=== PATIENT | male | born 1955 | race Caucasian/White ===

== ENCOUNTER 2016-10-05 16:07 | Inpatient (IN) | payer OTHER ==
[2016-10-05] MEDS ORDERED: Sodium Chloride 0.9% 1,000 ML IV ONE (16:23)
[2016-10-05] MEDS ORDERED: Sodium Chloride 0.9% 10 ML Syringe FLUSH PRN (16:31)
[2016-10-05] MEDS ORDERED: HYDROmorphone 1 MG/ML Syringe IVPUSH ONE (16:37)
--- NOTE | 2016-10-05 17:07 | EDM.PDOC ---
ED HPI GENERAL MEDICAL PROBLEM - General Chief Complaint: Gastrointestinal Problem Stated Complaint: BLOOD LOSS AFTER COLONOSCOPY Time Seen by Provider: 10/05/16 16:14 Source of Information: Reports: Patient History Limitations: Reports: No Limitations - History of Present Illness INITIAL COMMENTS - FREE TEXT/NARRATIVE: The patient presents with blood stool. He had a colonoscopy yesterday by Dr Grullon and she removed about 20 polyps. He was doing okay till this morning and he had 6 bloody stools. There was no feces just blood. He has some generalized abdominal pain. He was lightheaded and nauseated. He was also diaphoretic when he arrived. He denies chest pain or shortness of breath. He has no fever or chills. He has no bleeding problems and he is not on any blood thinners. Onset: Gradual Duration: Day(s): Location: Reports: Abdomen Quality: Reports: Other (crampy) Severity: Moderate Improves with: Reports: None Worsens with: Reports: None Context: Reports: Other (He had a colonoscopy yesterday) Associated Symptoms: Reports: Nausea/Vomiting. Denies: Chest Pain, Fever/Chills , Shortness of Breath Lower Abdominal Pain Score (Numeric/FACES): 7 - Related Data Allergies Allergy/AdvReac Type Severity Reaction Status Date / Time Penicillins Allergy Rash Verified 10/05/16 16:13 Home Meds: Home Meds Allopurinol [Zyloprim] 300 mg PO DAILY 11/15/15 [History] Lisinopril/Hydrochlorothiazide [Lisinopril-Hctz 20-12.5 mg Tab] 12.5 mg PO DAILY 11/15/15 [History] Tadalafil [Cialis] 5 mg PO ASDIRECTED PRN 11/15/15 [History] Hydrocodone/Acetaminophen [[place] 10-325 Tablet] 1 each PO Q6H PRN #15 tablet 06/03 [Rx] Aspirin [Ecotrin] 81 mg PO DAILY 10/05/16 [History] Atenolol 50 mg PO DAILY 10/05/16 [History] Dexlansoprazole [Dexilant] 60 mg PO DAILY 10/05/16 [History] Dextroamphetamine/Amphetamine [Adderall 20 mg Tablet] 20 mg PO TID 10/05/16 [ History] Mometasone Furoate [Nasonex [place]] 2 spray BRITTANEY DAILY 10/05/16 [History] Pravastatin [Pravachol] 20 mg PO BEDTIME 10/05/16 [History] Past Medical History HEENT History: Reports: Allergic Rhinitis, Cataract Cardiovascular History: Reports: Hypertension Gastrointestinal History: Reports: Bowel Obstruction, GERD Other Gastrointestinal History: hernia Genitourinary History: Reports: None Musculoskeletal History: Reports: Back Pain, Chronic, Gout, Neck Pain, Chronic Endocrine/Metabolic History: Reports: Other (See Below) Other Endocrine/Metabolic History: testost. injections q2 weeks - Infectious Disease History Infectious Disease History: Reports: Chicken Pox, Measles, Mumps - Past Surgical History HEENT Surgical History: Reports: Cataract Surgery, Laser Surgery GI Surgical History: Reports: Cholecystectomy, Colonoscopy, Hernia Repair/Other , Polypectomy Musculoskeletal Surgical History: Reports: Shoulder Surgery, Other (See Below) Social & Family History - Family History Cardiac: Reports: Blood Clots/VTE/DVT, Hypertension : Reports: None Endocrine/Metabolic: Reports: Diabetes, type II - Tobacco Use Smoking Status *Q: Never Smoker - Alcohol Use Days Per Week of Alcohol Use: 5 Number of Drinks Per Day: 1 Total Drinks Per Week: 5 - Recreational Drug Use Recreational Drug Use: No - Living Situation & Occupation Living situation: Reports: Occupation: Employed ED ROS GENERAL - Review of Systems Review Of Systems: See Below Constitutional: Reports: Weakness. Denies: Fever, Chills HEENT: Reports: No Symptoms Respiratory: Reports: No Symptoms Cardiovascular: Reports: No Symptoms Endocrine: Reports: No Symptoms GI/Abdominal: Reports: Abdominal Pain, Bloody Stool, Nausea. Denies: Vomiting : Reports: No Symptoms Musculoskeletal: Reports: No Symptoms Skin: Reports: No Symptoms Neurological: Reports: No Symptoms ED EXAM, GI/ABD - Physical Exam Exam: See Below Exam Limited By: No Limitations General Appearance: Alert, No Apparent Distress Ears: Normal External Exam Nose: Normal Inspection Head: Atraumatic, Normocephalic Neck: Normal Inspection Respiratory/Chest: No Respiratory Distress, Lungs Clear, Normal Breath Sounds Cardiovascular: Regular Rate, Rhythm, No Edema, No Murmur GI/Abdominal: Soft, No Organomegaly, No Mass, Tenderness (generalized) Back Exam: Normal Inspection Extremities: Normal Inspection Course - Vital Signs Last Recorded V/S: Last Vital Signs Temp 97.8 F 10/05/16 16:09 Pulse 102 H 10/05/16 17:10 Resp 13 10/05/16 17:10 BP 95/67 10/05/16 17:10 Pulse Ox 96 10/05/16 17:10 - Orders/Labs/Meds Orders: Active Orders 24 hr Category Date Time Status Cardiac Monitoring [RC] . DIRECTED Care 10/05/16 16:31 Active Peripheral IV Care [RC] . DIRECTED Care 10/05/16 16:32 Active Abdomen 1V Decubitis [CR] Stat Exams 10/05/16 16:32 Taken TYPE AND SCREEN [BBK] Stat Lab 10/05/16 16:15 Received Lactated Ringers @ 150 MLS/HR(1000ml Bag) Med 10/05/16 17:30 Ordered Lactated Ringers [Ringers, Lactated] 1,000 ml IV ASDIRECTED Sodium Chloride 0.9% [Saline Flush] Med 10/05/16 16:31 Active 10 ml FLUSH ASDIRECTED PRN Peripheral IV Insertion Adult [OM.PC] Stat Oth 10/05/16 16:31 Ordered Medication Orders Lactated Ringer's (Ringers, Lactated) 1,000 mls @ 150 mls/hr IV ASDIRECTED [place] Sodium Chloride (Saline Flush) 10 ml FLUSH ASDIRECTED PRN PRN Reason: Keep Vein Open Last Admin: 10/05/16 16:44 Dose: 10 ml Labs: Laboratory Tests 10/05/16 10/05/16 10/05/16 Range/Units 16:15 16:15 16:15 WBC 11.00 H (4.23-9.07) K/mm3 RBC 4.37 L (4.63-6.08) M/mm3 Hgb 14.6 (13.7-17.5) gm/L Hct 42.0 (40.1-51.0) % MCV 96.1 H (79.0-92.2) fl MCH 33.4 H (25.7-32.2) pg MCHC 34.8 (32.2-35.5) g/dl RDW Std Deviation 42.7 (35.1-43.9) fL Plt Count 288 (163-337) K/mm3 MPV 9.0 L (9.4-12.3) fl Neut % (Auto) 66.4 (34.0-67.9) % Lymph % (Auto) 22.6 (21.8-53.1) % [place] % (Auto) 9.0 (5.3-12.2) % Eos % (Auto) 1.0 (0.8-7.0) Baso % (Auto) 0.5 (0.1-1.2) % Neut # (Auto) 7.29 H (1.78-5.38) K/mm3 Lymph # (Auto) 2.49 (1.32-3.57) K/mm3 [place] # (Auto) 0.99 H (0.30-0.82) K/mm3 Eos # (Auto) 0.11 (0.04-0.54) K/mm3 Baso # (Auto) 0.06 (0.01-0.08) K/mm3 Sodium 138 (136-145) mEq/L Potassium 4.5 (3.5-5.1) mEq/L Chloride 102 (98-107) mEq/L Carbon Dioxide 28 (21-32) mEq/L Anion Gap 12.5 (5-15) BUN 15 (7-18) mg/dL Creatinine 1.5 H (0.7-1.3) mg/dL Est Cr Clr Drug Dosing 54.75 mL/min Estimated GFR (MDRD) 48 (>60) mL/min BUN/Creatinine Ratio 10.0 L (14-18) Glucose 113 H (74-106) mg/dL Calcium 8.6 (8.5-10.1) mg/dL Total Bilirubin 0.4 (0.2-1.0) mg/dL AST 22 (15-37) U/L ALT 45 (16-63) U/L Alkaline Phosphatase 86 (46-116) U/L Total Protein 6.5 (6.4-8.2) g/dl Albumin 3.5 (3.4-5.0) g/dl Globulin 3.0 gm/dL Albumin/Globulin Ratio 1.2 (1-2) Lipase 80 (73-393) U/L Meds: Medications Generic Name Dose Route Start Last Admin Trade Name Freq PRN Reason Stop Dose Admin Lactated Ringer's 1,000 mls @ 150 mls/hr 10/05/16 17:30 Ringers, Lactated IV ASDIRECTED [place]O Sodium Chloride 10 ml 10/05/16 16:31 10/05/16 16:44 Saline Flush FLUSH 10 ml ASDIRECTED PRN Administration Keep Vein Open Discontinued Medications Generic Name Dose Route Start Last Admin Trade Name Nic PRN Reason Stop Dose Admin Hydromorphone HCl 1 mg 10/05/16 16:37 10/05/16 16:43 Dilaudid IVPUSH 10/05/16 16:38 1 mg ONETIME ONE Administration Sodium Chloride 1,000 mls @ 999 mls/hr 10/05/16 16:23 10/05/16 16:24 Normal Saline IV 10/05/16 17:23 999 mls/hr ONETIME ONE Administration - Re-Assessments/Exams Free Text/Narrative Re-Assessment/Exam: 10/05/16 17:11 I ordered an IV NS 1L bolus, labs, x-ray and type and screen. I contacted Dr Grullon when he came in and she was okay with the plan. I will call her with an update. 10/05/16 17:31 His x-ray was done right lateral position and it shows no free air or obstruction. His WBC is elevated at 11. His Hgb is normal at 14.6. His creatinine is elevated at 1.5. His lipase is normal. He had another bowel movement and there was 20mls of dark red blood. He had more pain. I called Dr Grullon to up date her on she will admit him see him shortly. Departure - Departure Time of Disposition: 17:35 Disposition: Admitted As Inpatient 68 Condition: fair Clinical Impression: Renal insufficiency GI bleed Qualifiers: GI bleed type/associated pathology: unspecified gastrointestinal hemorrhage type Qualified Code(s): K92.2 - Gastrointestinal hemorrhage, unspecified - Discharge Information Forms: ED Department Discharge - My Orders Last 24 Hours: My Active Orders 10/05/16 16:15 TYPE AND SCREEN [BBK] Stat 10/05/16 16:31 Cardiac Monitoring [RC] . DIRECTED Sodium Chloride 0.9% [Saline Flush] 10 ml FLUSH ASDIRECTED PRN Peripheral IV Insertion Adult [OM.PC] Stat 10/05/16 16:32 Peripheral IV Care [RC] . DIRECTED Abdomen 1V Decubitis [CR] Stat 10/05/16 17:30 Lactated Ringers @ 150 MLS/HR(1000ml Bag) Lactated Ringers [Ringers, Lactated] 1 ,000 ml IV ASDIRECTED - Assessment/Plan Last 24 Hours: My Active Orders 10/05/16 16:15 TYPE AND SCREEN [BBK] Stat 10/05/16 16:31 Cardiac Monitoring [RC] . DIRECTED Sodium Chloride 0.9% [Saline Flush] 10 ml FLUSH ASDIRECTED PRN Peripheral IV Insertion Adult [OM.PC] Stat 10/05/16 16:32 Peripheral IV Care [RC] . DIRECTED Abdomen 1V Decubitis [CR] Stat 10/05/16 17:30 Lactated Ringers @ 150 MLS/HR(1000ml Bag) Lactated Ringers [Ringers, Lactated] 1 ,000 ml IV ASDIRECTED
[2016-10-05] MEDS ORDERED: Lactated Ringers 1,000 ML IV SCH (17:30)
[2016-10-05] MEDS ORDERED: HYDROmorphone 0.5 MG/0.5 ML Syringe IVPUSH ONE (17:37)
[2016-10-05] MEDS ORDERED: Acetaminophen 325 MG Tab PO PRN (19:19)
[2016-10-05] MEDS ORDERED: diphenhydrAMINE 50 MG/ML SDV IV PRN (19:19)
--- NOTE | 2016-10-05 19:29 | PCM.HP ---
H&P History of Present Illness - General Date of Service: 10/05/16 Admit Problem/Dx: Admission Diagnosis/Problem Admission Diagnosis/Problem Hemorrhage of colon Source of Information: Patient, Family, Provider History Limitations: Reports: No Limitations - History of Present Illness Initial Comments - Free Text/Narative: 61 yo M with hx of colonoscopy yesterday performed by me with removal of 20 polyps. He began having some bloody diarrhea, more maroon in color today. He also has some abd discomfort. The stools became larger throughout the day today and he felt weaker. He presented to the ED where he had several small volume bloody stools, slight tachycardia (low 100s), and some hypotension to the mid 80s systolic, which responded to IVF. Lat decub xray obtained in the ED did not show any pneumoperitoneum. He was admitted and about 15 minutes after transfer to the Med/Surg floor he had a large volume bloody stool with presyncope. He did report difficulty breathing at that time and the nurse called a rapid response. His oxygen saturations have been normal and were normal when he reported difficulty breathing. He was given a 1L bolus and I asked that he be transferred to the ICU when his nurse contacted me by telephone. The patient also had a stat EKG which showed no acute changes and cardiac enzymes. I reviewed the patient's laboratory studies. His last Hb at [facility] was nearly 18, he does have a hx of polycythemia. His baseline Cr is also 1 on recent CMP (previous labs on 10/01), it was elevated in the ED today to 1.5. I did obtain a stat CXR which showed no pulmonary vascular congestion or other significant acute abnormalities. He does not feel short of breath at this time, but says if he takes a deep breath he feels light-headed. He has some abdominal pain, but complains primarily of shoulder pain. He reports that he does not feel anxious. He also had a very recent rotator cuff tear. He has sleep apnea but has not yet completed testing or started with a CPAP. This has been ordered however. He did take all of his medications today except his beta-javon which he takes at night. His was at the bedside during the interview and contributed to the history. Does take baby ASA daily. Lower Abdominal Pain Score (Numeric/FACES): 7 - Related Data Allergies/Adverse Reactions: Allergies Allergy/AdvReac Type Severity Reaction Status Date / Time Penicillins Allergy Rash Verified 10/05/16 16:13 Home Medications: Home Meds Allopurinol [Zyloprim] 300 mg PO DAILY 11/15/15 [History] Lisinopril/Hydrochlorothiazide [Lisinopril-Hctz 20-12.5 mg Tab] 12.5 mg PO DAILY 11/15/15 [History] Tadalafil [Cialis] 5 mg PO ASDIRECTED PRN 11/15/15 [History] Hydrocodone/Acetaminophen [[place] 10-325 Tablet] 1 each PO Q6H PRN #15 tablet 06/03 [Rx] Aspirin [Ecotrin] 81 mg PO DAILY 10/05/16 [History] Atenolol 50 mg PO DAILY 10/05/16 [History] Dexlansoprazole [Dexilant] 60 mg PO DAILY 10/05/16 [History] Dextroamphetamine/Amphetamine [Adderall 20 mg Tablet] 20 mg PO TID 10/05/16 [ History] Mometasone Furoate [Nasonex Ava] 2 spray BRITTANEY DAILY 10/05/16 [History] Pravastatin [Pravachol] 20 mg PO BEDTIME 10/05/16 [History] Past Medical History HEENT History: Reports: Allergic Rhinitis, Cataract Cardiovascular History: Reports: CAD, High Cholesterol, Hypertension Respiratory History: Reports: Sleep Apnea Gastrointestinal History: Reports: Bowel Obstruction, Colon Polyp, GERD, GI Bleed, Hiatal Hernia, Other (See Below) (Fatty liver disease) Other Gastrointestinal History: Gastritis/Esophagitis Genitourinary History: Reports: BPH Musculoskeletal History: Reports: Back Pain, Chronic, Gout, Neck Pain, Chronic Other Musculoskeletal History: Recent rotator cuff tear (this May) Psychiatric History: Reports: ADD, Anxiety Endocrine/Metabolic History: Reports: Other (See Below) Other Endocrine/Metabolic History: testost. injections q2 weeks Hematologic History: Reports: Polycythemia (Baseline Hb 18) - Infectious Disease History Infectious Disease History: Reports: Chicken Pox, Measles, Mumps - Past Surgical History HEENT Surgical History: Reports: Cataract Surgery, Laser Surgery GI Surgical History: Reports: Cholecystectomy, Colonoscopy, EGD, Hernia, Abdominal, Hernia Repair/Other, Polypectomy Musculoskeletal Surgical History: Reports: Shoulder Surgery, Other (See Below) Social & Family History - Family History Cardiac: Reports: Blood Clots/VTE/DVT, Hypertension : Reports: None Endocrine/Metabolic: Reports: Diabetes, type II - Tobacco Use Smoking Status *Q: Former Smoker Tobacco Use Within Last Twelve Months: No - Alcohol Use Days Per Week of Alcohol Use: 5 Number of Drinks Per Day: 1 Total Drinks Per Week: 5 - Recreational Drug Use Recreational Drug Use: No - Living Situation & Occupation Living situation: Reports: Occupation: Employed Social History Comment: and has 1 adult child. 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 Diet coke 7-8 cans a day. H&P Review of Systems - Review of Systems: Review Of Systems: See Below General: Reports: Weakness, Fatigue HEENT: Reports: No Symptoms Pulmonary: Reports: Wheezing. Denies: Shortness of Breath, Cough Cardiovascular: Reports: Dyspnea on Exertion, Lightheadedness. Denies: Chest Pain, Edema Gastrointestinal: Reports: Abdominal Pain, Bloody Stool, Diarrhea, Hematochezia. Denies: Distension, Nausea, Vomiting Genitourinary: Reports: No Symptoms Musculoskeletal: Reports: Neck Pain, Shoulder Pain, Back Pain Skin: Reports: No Symptoms Psychiatric: Reports: No Symptoms Neurological: Reports: No Symptoms Hematologic/Lymphatic: Reports: No Symptoms Immunologic: Reports: No Symptoms Exam - Exam Exam: See Below - Vital Signs Vital Signs: Last Vital Signs Temp 97.3 F 10/05/16 18:53 Pulse 110 H 10/05/16 18:43 Resp 11 L 10/05/16 18:53 BP 107/79 10/05/16 18:53 Pulse Ox 97 10/05/16 18:53 Weight: 220 lb - Exam Quality Assessment: Supplemental Oxygen General: Alert, Oriented, Cooperative HEENT: Conjunctiva Clear. No: Scleral Icterus Neck: Supple, Trachea Midline Lungs: Clear to Auscultation, Normal Respiratory Effort, Wheezing (? some upper respiratory ) Abdomen: Soft, Tenderness (right and left lateral abdomen, some around umbilicus ). No: Peritoneal Signs Rectal (Males) Exam: Deferred, Bloody Stool Skin: Warm, Dry, Intact Neurological: Cranial Nerves Intact, Normal Speech. No: Focal Deficit Neuro Extensive - Mental Status: Alert Psychiatric: Alert - Patient Data Lab Results last 24 hrs: Laboratory Results - last 24 hr 10/05/16 10/05/16 Range/Units 18:40 18:40 WBC 10.83 H (4.23-9.07) K/mm3 RBC 3.75 L (4.63-6.08) M/mm3 Hgb 12.6 L (13.7-17.5) gm/L Hct 35.8 L (40.1-51.0) % MCV 95.5 H (79.0-92.2) fl MCH 33.6 H (25.7-32.2) pg MCHC 35.2 (32.2-35.5) g/dl RDW Std Deviation 42.3 (35.1-43.9) fL Plt Count 256 (163-337) K/mm3 MPV 8.8 L (9.4-12.3) fl Neut % (Auto) 65.2 (34.0-67.9) % Lymph % (Auto) 23.7 (21.8-53.1) % [place] % (Auto) 8.8 (5.3-12.2) % Eos % (Auto) 1.2 (0.8-7.0) Baso % (Auto) 0.5 (0.1-1.2) % Neut # (Auto) 7.06 H (1.78-5.38) K/mm3 Lymph # (Auto) 2.57 (1.32-3.57) K/mm3 [place] # (Auto) 0.95 H (0.30-0.82) K/mm3 Eos # (Auto) 0.13 (0.04-0.54) K/mm3 Baso # (Auto) 0.05 (0.01-0.08) K/mm3 CK-MB (CK-2) 0.9 (0-3.6) ng/ml Troponin I < 0.017 (0.00-0.056) ng/mL Result Diagrams: 10/05/16 18:40 10/05/16 16:15 Imaging Impressions last 24 hrs: I personally reviewed his CXR and abdominal XR, see H&P. *Q Meaningful Use (ADM) - VTE *Q VTE Criteria *Q: - Stroke *Q Stroke Criteria *Q: - AMI *Q AMI Criteria *Q: - Problem List (1) Colonoscopy causing post-procedural bleeding SNOMED Code(s): 021413706 ICD Code: K91.840 - POSTPROC HEMOR OF A DGSTV SYS ORG FOL A DGSTV SYS PROCEDURE Status: Acute Priority: High Current Visit: Yes (2) Acute post-hemorrhagic anemia SNOMED Code(s): 901697759 ICD Code: D62 - ACUTE POSTHEMORRHAGIC ANEMIA Status: Acute Current Visit : Yes (3) Hypotension SNOMED Code(s): 34503771 ICD Code: I95.9 - HYPOTENSION, UNSPECIFIED Status: Acute Current Visit: Yes (4) Tachycardia SNOMED Code(s): 0127101 ICD Code: R00.0 - TACHYCARDIA, UNSPECIFIED Status: Acute Current Visit: Yes (5) Sleep apnea in adult SNOMED Code(s): 60648320 ICD Code: G47.30 - SLEEP APNEA, UNSPECIFIED Status: Acute Current Visit: Yes (6) CAD (coronary artery disease) SNOMED Code(s): 38793112 ICD Code: I25.10 - ATHSCL HEART DISEASE OF [place] CORONARY ARTERY W/O ANG PCTRS Status: Acute Current Visit: Yes (7) Polycythemia SNOMED Code(s): 777172350 ICD Code: D75.1 - SECONDARY POLYCYTHEMIA Status: Acute Current Visit: Yes (8) GERD (gastroesophageal reflux disease) SNOMED Code(s): 276445399 ICD Code: K21.9 - GASTRO-ESOPHAGEAL REFLUX DISEASE WITHOUT ESOPHAGITIS Status: Acute Current Visit: No (9) Hiatal hernia SNOMED Code(s): 89323163 ICD Code: K44.9 - DIAPHRAGMATIC HERNIA WITHOUT OBSTRUCTION OR GANGRENE Status: Acute Current Visit: No (10) Hypertension SNOMED Code(s): 95117610 ICD Code: I10 - ESSENTIAL (PRIMARY) HYPERTENSION Status: Acute Current Visit: No (11) History of colon polyps SNOMED Code(s): 656023504 ICD Code: Z86.010 - PERSONAL HISTORY OF COLONIC POLYPS Status: Acute Current Visit: Yes (12) BPH (benign prostatic hyperplasia) SNOMED Code(s): 408749625, 211220392 ICD Code: N40.0 - BENIGN PROSTATIC HYPERPLASIA WITHOUT LOWER URINRY TRACT SYMP Status: Acute Current Visit: Yes (13) ADD (attention deficit disorder) SNOMED Code(s): 396384433 ICD Code: F98.8 - OTH BEHAV/EMOTN DISORD W ONSET USLY OCCUR IN CHLDHD AND ADOL Status: Acute Current Visit: Yes (14) Anxiety SNOMED Code(s): 29386768 ICD Code: F41.9 - ANXIETY DISORDER, UNSPECIFIED Status: Acute Current Visit: Yes (15) Low testosterone in male SNOMED Code(s): 3138954516740 ICD Code: E29.1 - TESTICULAR HYPOFUNCTION Status: Acute Current Visit: Yes (16) GI bleed SNOMED Code(s): 44464392 ICD Code: K92.2 - GASTROINTESTINAL HEMORRHAGE, UNSPECIFIED Status: Acute Current Visit: Yes Qualifiers: GI bleed type/associated pathology: unspecified gastrointestinal hemorrhage type Qualified Code(s): K92.2 - Gastrointestinal hemorrhage, unspecified (17) Renal insufficiency SNOMED Code(s): 359849742, 165388815 ICD Code: N28.9 - DISORDER OF KIDNEY AND URETER, UNSPECIFIED Status: Acute Current Visit: Yes Problem List Initiated/Reviewed/Updated: Yes Orders Last 24hrs: Active Orders 24 hr Category Date Time Status Patient Status [ADT] Routine ADT 10/05/16 18:36 Active EKG 12 Lead [EKG Documentation Completion] [RC] STAT Care 10/05/16 18:36 Active CXR [Chest 1V Frontal] [CR] Stat Exams 10/05/16 19:10 Ordered CBC W/O DIFF,HEMOGRAM [HEME] Q6H Lab 10/05/16 23:59 Ordered CBC W/O DIFF,HEMOGRAM [HEME] Q6H Lab 10/06/16 05:59 Ordered CBC W/O DIFF,HEMOGRAM [HEME] Q6H Lab 10/06/16 11:59 Ordered CBC W/O DIFF,HEMOGRAM [HEME] Q6H Lab 10/06/16 17:59 Ordered INR,PT,PROTHROMBIN TIME [COAG] Stat Lab 10/05/16 18:40 Received Acetaminophen [Tylenol] Med 10/05/16 19:19 Once 650 mg PO NOW ONE diphenhydrAMINE [Benadryl] Med 10/05/16 19:19 Once 25 mg IV ONETIME ONE Blood Transfusion Reflex Orders [OM.PC] Routine Oth 10/05/16 19:19 Ordered Transfuse PRBC [Transfuse Red Blood Cells] [COMM] Stat Oth 10/05/16 19:19 Ordered Transfuse Red Blood Cells [COMM] Urgent Oth 10/05/16 19:19 Ordered Medication Orders Acetaminophen (Tylenol) 650 mg PO ASDIRECTED PRN PRN Reason: * GIVE 30 MIN PRIOR TO PRBC * Stop: 10/05/16 23:59 Diphenhydramine HCl (Benadryl) 25 mg IV ASDIRECTED PRN PRN Reason: * GIVE 30 MIN PRIOR TO PRBC * Stop: 10/05/16 23:59 Lactated Ringer's (Ringers, Lactated) 1,000 mls @ 150 mls/hr IV ASDIRECTED AUGUSTO Last Admin: 10/05/16 17:30 Dose: 150 mls/hr Sodium Chloride (Saline Flush) 10 ml FLUSH ASDIRECTED PRN PRN Reason: Keep Vein Open Last Admin: 10/05/16 16:44 Dose: 10 ml Assessment/Plan Comment:: 61 yo M with GI bleeding likely 2/2 multiple polypectomies on colonoscopy yesterday Patient with polycythemia and decr Hb 18->12.6 with ongoing losses and significantly symptomatic. 2 units O negative given while crossmatch completed. Will proceed with emergent colonoscopy to control hemorrhage. Risks and benefits of colonoscopy and blood transfusion discussed with the patient and his . Consent obtained from patient. Will plan for ongoing transfusion at this time and 1 unit FFP until hemorrhage controlled. No evidence of pneumoperitoneum or vascular overload. 75 minutes spent at the bedside in direct care of the patient.
--- NOTE | 2016-10-05 20:18 | PCM.PREANE ---
Preanesthetic Assessment - Anesthesia/Transfusion/Family Hx Anesthesia History: Prior Anesthesia Without Reaction Family History of Anesthesia Reaction: No Transfusion History: Prior Transfusion Without Reaction (CURRENTLY RECEIVING 2 UNITS.) Intubation History: Unknown - Review of Systems General: Weakness, Fatigue Pulmonary: No Symptoms Cardiovascular: No Symptoms (HTN) Gastrointestinal: Abdominal pain Neurological: No Symptoms (left rotator cuff/shoulder pain noted.), Weakness Other: Reports: None - Physical Assessment NPO Status Date: 10/05/16 NPO Status Time: 01:00 Pulse: 110 O2 Sat by Pulse Oximetry: 97 Respiratory Rate: 11 Blood Pressure: 101/76 Temperature: 36.3 C Vital Signs: Last Vital Signs Temp 36.3 C 10/05/16 18:53 Pulse 110 H 10/05/16 18:43 Resp 11 L 10/05/16 18:53 BP 107/79 10/05/16 18:53 Pulse Ox 97 10/05/16 18:53 Height: 1.78 m Weight: 99.79 kg ASA Class: 3E Mental Status: Alert & Oriented x3 Airway Class: Mallampati = 2 Dentition: Reports: Normal Dentition, Caries Thyro-Mental Finger Breadths: 3 Mouth Opening Finger Breadths: 3 ROM/Head Extension: Full Lungs: Clear to auscultation, Normal respiratory effort, Decreased breath sounds Cardiovascular: Regular Rate, Regular Rhythm - Lab Values: Laboratory Last Values WBC 10.83 K/mm3 (4.23-9.07) H 10/05/16 18:40 RBC 3.75 M/mm3 (4.63-6.08) L 10/05/16 18:40 Hgb 12.6 gm/L (13.7-17.5) L 10/05/16 18:40 Hct 35.8 % (40.1-51.0) L 10/05/16 18:40 MCV 95.5 fl (79.0-92.2) H 10/05/16 18:40 MCH 33.6 pg (25.7-32.2) H 10/05/16 18:40 MCHC 35.2 g/dl (32.2-35.5) 10/05/16 18:40 RDW Std Deviation 42.3 fL (35.1-43.9) 10/05/16 18:40 Plt Count 256 K/mm3 (163-337) 10/05/16 18:40 MPV 8.8 fl (9.4-12.3) L 10/05/16 18:40 Neut % (Auto) 65.2 % (34.0-67.9) 10/05/16 18:40 Lymph % (Auto) 23.7 % (21.8-53.1) 10/05/16 18:40 [place] % (Auto) 8.8 % (5.3-12.2) 10/05/16 18:40 Eos % (Auto) 1.2 (0.8-7.0) 10/05/16 18:40 Baso % (Auto) 0.5 % (0.1-1.2) 10/05/16 18:40 Neut # (Auto) 7.06 K/mm3 (1.78-5.38) H 10/05/16 18:40 Lymph # (Auto) 2.57 K/mm3 (1.32-3.57) 10/05/16 18:40 [place] # (Auto) 0.95 K/mm3 (0.30-0.82) H 10/05/16 18:40 Eos # (Auto) 0.13 K/mm3 (0.04-0.54) 10/05/16 18:40 Baso # (Auto) 0.05 K/mm3 (0.01-0.08) 10/05/16 18:40 PT 10.9 SECONDS (8.0-13.0) 10/05/16 18:40 INR 1.00 10/05/16 18:40 Sodium 138 mEq/L (136-145) 10/05/16 16:15 Potassium 4.5 mEq/L (3.5-5.1) 10/05/16 16:15 Chloride 102 mEq/L (98-107) 10/05/16 16:15 Carbon Dioxide 28 mEq/L (21-32) 10/05/16 16:15 Anion Gap 12.5 (5-15) 10/05/16 16:15 BUN 15 mg/dL (7-18) 10/05/16 16:15 Creatinine 1.5 mg/dL (0.7-1.3) H 10/05/16 16:15 Est Cr Clr Drug Dosing 54.75 mL/min 10/05/16 16:15 Estimated GFR (MDRD) 48 mL/min (>60) 10/05/16 16:15 BUN/Creatinine Ratio 10.0 (14-18) L 10/05/16 16:15 Glucose 113 mg/dL (74-106) H 10/05/16 16:15 Calcium 8.6 mg/dL (8.5-10.1) 10/05/16 16:15 Total Bilirubin 0.4 mg/dL (0.2-1.0) 10/05/16 16:15 AST 22 U/L (15-37) 10/05/16 16:15 ALT 45 U/L (16-63) 10/05/16 16:15 Alkaline Phosphatase 86 U/L (46-116) 10/05/16 16:15 CK-MB (CK-2) 0.9 ng/ml (0-3.6) 10/05/16 18:40 Troponin I < 0.017 ng/mL (0.00-0.056) 10/05/16 18:40 Total Protein 6.5 g/dl (6.4-8.2) 10/05/16 16:15 Albumin 3.5 g/dl (3.4-5.0) 10/05/16 16:15 Globulin 3.0 gm/dL 10/05/16 16:15 Albumin/Globulin Ratio 1.2 (1-2) 10/05/16 16:15 Lipase 80 U/L (73-393) 10/05/16 16:15 Blood Type O POSITIVE 10/05/16 16:15 Gel Antibody Screen Negative 10/05/16 16:15 Crossmatch See Detail 10/05/16 16:15 Above labs reviewed and noted. - Imaging/EKG Impressions: ek07/05/2016: SINUS TACYCARDIA Echocardiogram: EF= 65-70% - Allergies Allergies/Adverse Reactions: Allergies Allergy/AdvReac Type Severity Reaction Status Date / Time Penicillins Allergy Rash Verified 10/05/16 16:13 - Blood Blood Available: Yes Product(s) Available: PRBC, FFP - Anesthesia Plan Pre-Op Medication Ordered: Beta Dolly Beta Dolly: Atenolol Med Last Dose Date: 10/05/16 Med Last Dose Time: 01:30 - Acknowledgements Anesthesia Type Planned: MAC Pt an Appropriate Candidate for the Planned Anesthesia: Yes Alternatives and Risks of Anesthesia Discussed w Pt/Guardian: Yes Pt/Guardian Understands and Agrees with Anesthesia Plan: Yes PreAnesthesia Questionnaire HEENT History: Reports: Allergic Rhinitis, Cataract Cardiovascular History: Reports: CAD, High Cholesterol, Hypertension Respiratory History: Reports: Sleep Apnea Gastrointestinal History: Reports: Bowel Obstruction, Colon Polyp, GERD, GI Bleed, Hiatal Hernia, Other (See Below) (Fatty liver disease) Other Gastrointestinal History: Gastritis/Esophagitis Genitourinary History: Reports: BPH Musculoskeletal History: Reports: Back Pain, Chronic, Gout, Neck Pain, Chronic Other Musculoskeletal History: Recent rotator cuff tear (this May) Psychiatric History: Reports: ADD, Anxiety Endocrine/Metabolic History: Reports: Other (See Below) Other Endocrine/Metabolic History: testost. injections q2 weeks Hematologic History: Reports: Polycythemia (Baseline Hb 18) - Infectious Disease History Infectious Disease History: Reports: Chicken Pox, Measles, Mumps - Past Surgical History HEENT Surgical History: Reports: Cataract Surgery, Laser Surgery GI Surgical History: Reports: Cholecystectomy, Colonoscopy, EGD, Hernia, Abdominal, Hernia Repair/Other, Polypectomy Musculoskeletal Surgical History: Reports: Shoulder Surgery, Other (See Below) - SUBSTANCE USE Smoking Status *Q: Former Smoker Tobacco Use Within Last Twelve Months: No Days Per Week of Alcohol Use: 5 Number of Drinks Per Day: 1 Total Drinks Per Week: 5 Recreational Drug Use History: No - HOME MEDS Home Medications: Home Meds Allopurinol [Zyloprim] 300 mg PO DAILY 11/15/15 [History] Lisinopril/Hydrochlorothiazide [Lisinopril-Hctz 20-12.5 mg Tab] 12.5 mg PO DAILY 11/15/15 [History] Tadalafil [Cialis] 5 mg PO ASDIRECTED PRN 11/15/15 [History] Hydrocodone/Acetaminophen [[place] 10-325 Tablet] 1 each PO Q6H PRN #15 tablet 06/03 [Rx] Aspirin [Ecotrin] 81 mg PO DAILY 10/05/16 [History] Atenolol 50 mg PO DAILY 10/05/16 [History] Dexlansoprazole [Dexilant] 60 mg PO DAILY 10/05/16 [History] Dextroamphetamine/Amphetamine [Adderall 20 mg Tablet] 20 mg PO TID 10/05/16 [ History] Mometasone Furoate [Nasonex [place]] 2 spray BRITTANEY DAILY 10/05/16 [History] Pravastatin [Pravachol] 20 mg PO BEDTIME 10/05/16 [History] - CURRENT (IN HOUSE) MEDS Current Meds: Current Medications Acetaminophen (Tylenol) 650 mg PO ASDIRECTED PRN PRN Reason: * GIVE 30 MIN PRIOR TO PRBC * Stop: 10/05/16 23:59 Thrombin 50,000 unit/ Sterile (Water 1,000 ml) 0 unit RECTAL ONETIME ONE Stop: 10/05/16 19:30 Diphenhydramine HCl (Benadryl) 25 mg IV ASDIRECTED PRN PRN Reason: * GIVE 30 MIN PRIOR TO PRBC * Stop: 10/05/16 23:59 Lactated Ringer's (Ringers, Lactated) 1,000 mls @ 150 mls/hr IV ASDIRECTED AUG[place]O Last Admin: 10/05/16 17:30 Dose: 150 mls/hr Sodium Chloride (Saline Flush) 10 ml FLUSH ASDIRECTED PRN PRN Reason: Keep Vein Open Last Admin: 10/05/16 16:44 Dose: 10 ml Discontinued Medications Hydromorphone HCl (Dilaudid) 1 mg IVPUSH ONETIME ONE Stop: 10/05/16 16:38 Last Admin: 10/05/16 16:43 Dose: 1 mg Hydromorphone HCl (Dilaudid) 0.5 mg IVPUSH ONETIME ONE Stop: 10/05/16 17:38 Last Admin: 10/05/16 17:41 Dose: 0.5 mg Sodium Chloride (Normal Saline) 1,000 mls @ 999 mls/hr IV ONETIME ONE Stop: 10/05/16 17:23 Last Admin: 10/05/16 16:24 Dose: 999 mls/hr
[2016-10-05] MEDS ORDERED: Thrombin (Bovine) 5,000 Unit Kit ONE ×2 (20:38→20:55)
[2016-10-05] MEDS ORDERED: Simvastatin 10 MG Tab PO SCH (21:00)
[2016-10-05] MEDS ORDERED: Non-Formulary Medication 1 Each (Pravastatin 20 MG) PO SCH (21:00)
[2016-10-05] MEDS ORDERED: fentaNYL 100 MCG/2 ML SDV ONE (21:05)
[2016-10-05] MEDS ORDERED: Lidocaine 1% 6 ML ONE (21:05)
[2016-10-05] MEDS ORDERED: Propofol 200 MG/20 ML SDV ONE ×3 (21:05→22:03)
[2016-10-05] MEDS ORDERED: Lidocaine 1% 2 ML ONE ×2 (21:12)
[2016-10-05] MEDS ORDERED: Lactated Ringers 1,000 ML ONE ×2 (21:30)
[2016-10-05] MEDS ORDERED: Sodium Chloride 0.9% 1,000 ML ONE (21:31)
[2016-10-05] MEDS: WATER FOR IRRIGATION STERILE RECTAL ONE ×4 (21:42→23:53)
[2016-10-05] MEDS: THROMBIN RECTAL ONE ×4 (21:42→23:53)
--- NOTE | 2016-10-05 22:03 | PCM.OPNOTE ---
- General Post-Op/Procedure Note Date of Surgery/Procedure: 10/05/16 Operative Procedure(s): Diagnostic colonoscopy with clip placement, instillation of thrombin enema Pre Op Diagnosis: Post-colonoscopy GI bleeding Post-Op Diagnosis: Area of cecal polyp excision with recent, but no active bleeding Anesthesia Technique: MAC Primary Surgeon: Lisa Grullon Anesthesia Provider: Jenna Sauceda Pathology: None Fluid Replacement, Intraop: 2,280 (see next ) EBL in mLs: 400 (old blood suctioned from colon ) Complications: None Condition: Good Free Text/Narrative:: INTRAOPERATIVE FLUIDS: 2 units packed red blood cells - 720 mL, FFP 360 mL, crystalloid 1100 mL; TOTAL - 2280 mL INDICATION FOR PROCEDURE: The patient is a []-year-old [] who was referred to me by [] for evaluation for []. Performing a [] colonoscopy and the associated risks of the procedure had been discussed with the patient. The patient found these risks acceptable and agreed to proceed. DESCRIPTION OF PROCEDURE: The patient was taken to the operating room and placed in left lateral decubitus position. After induction of adequate sedation , a digital rectal exam was performed which was unremarkable. [] A [] Olympus colonoscope was inserted into the rectum and guided under direct visualization to the appendiceal orifice and ileocecal valve. Counter pressure was utilized to facilitate passage of the scope. [] The scope was then slowly withdrawn through the colon. The quality of the prep was []. There was no evidence of angiodysplasias, diverticulum or mass lesions. The scope was withdrawn into the rectum and retroflexed. There was no significant prominence of the patient' s internal hemorrhoids. The scope was straightened, the colon was desufflated, and the scope was withdrawn. The patient was awakened from sedation and transferred to the recovery room in stable condition having tolerated the procedure well. POSTOPERATIVE PLAN: I discussed with the patient's [] my intraoperative findings and recommendations. []
[2016-10-05] MEDS ORDERED: Ondansetron 4 MG/2 ML SDV IVPUSH PRN (22:05)
[2016-10-05] MEDS ORDERED: Sodium Chloride 0.9% 1,000 ML IV SCH (22:15)
[2016-10-05] MEDS ORDERED: Benzocaine/Cetylpyridinium/Menthol Lozenge MUCMEM PRN (22:56)
[2016-10-05] MEDS: HYDROmorphone 0.5 MG/0.5 ML Syringe IVPUSH PRN (23:05)
[2016-10-06] MEDS ORDERED: Magnesium Sulfate/Water 2 GM in Premix Bag 1 BAG IV ONE (00:45)
[2016-10-06] MEDS ORDERED: Magnesium Sulfate/Water 50 ML ONE (00:50)
[2016-10-06] MEDS: HYDROmorphone 0.5 MG/0.5 ML Syringe IVPUSH PRN (05:24)
[2016-10-06] MEDS ORDERED: Pantoprazole 40 MG Tab.CR PO SCH ×2 (07:00→09:00)
[2016-10-06] MEDS ORDERED: Allopurinol 300 MG Tab PO SCH (09:00)
[2016-10-06] MEDS ORDERED: Non-Formulary Medication 1 Each (Dexlansoprazole [Dexilant] 60 MG) PO SCH (09:00)
[2016-10-06] MEDS ORDERED: MOMETASONE FUROATE NAS SCH (09:00)
--- NOTE | 2016-10-06 10:27 | PCM.PN ---
- General Info Date of Service: 10/06/16 Admission Dx/Problem (Free Text): Admission Diagnosis/Problem Admission Diagnosis/Problem Hemorrhage of colon - Review of Systems Systems Review Comment:: No bleeding/loose stools since colonoscopy last night. No complaints this AM other than left shoulder. Tolerating diet this morning. Reports "feels great." - Patient Data Vitals - most recent: Last Vital Signs Temp 98.0 F 10/06/16 07:57 Pulse 110 H 10/05/16 20:39 Resp 14 10/06/16 07:57 BP 114/82 10/06/16 07:57 Pulse Ox 96 10/06/16 07:57 Weight - most recent: 216 lb 7.903 oz I&O - last 24 hours: Intake & Output 10/05/16 10/06/16 10/06/16 22:59 06:59 14:59 Intake Total 2280 2250 Output Total 850 Balance 2280 1400 Lab Results last 24 hrs: Laboratory Results - last 24 hr 10/05/16 10/05/16 10/05/16 Range/Units 18:40 18:40 18:40 WBC 10.83 H (4.23-9.07) K/mm3 RBC 3.75 L (4.63-6.08) M/mm3 Hgb 12.6 L (13.7-17.5) gm/L Hct 35.8 L (40.1-51.0) % MCV 95.5 H (79.0-92.2) fl MCH 33.6 H (25.7-32.2) pg MCHC 35.2 (32.2-35.5) g/dl RDW Std Deviation 42.3 (35.1-43.9) fL Plt Count 256 (163-337) K/mm3 MPV 8.8 L (9.4-12.3) fl Neut % (Auto) 65.2 (34.0-67.9) % Lymph % (Auto) 23.7 (21.8-53.1) % [place] % (Auto) 8.8 (5.3-12.2) % Eos % (Auto) 1.2 (0.8-7.0) Baso % (Auto) 0.5 (0.1-1.2) % Neut # (Auto) 7.06 H (1.78-5.38) K/mm3 Lymph # (Auto) 2.57 (1.32-3.57) K/mm3 [place] # (Auto) 0.95 H (0.30-0.82) K/mm3 Eos # (Auto) 0.13 (0.04-0.54) K/mm3 Baso # (Auto) 0.05 (0.01-0.08) K/mm3 PT 10.9 (8.0-13.0) SECONDS INR 1.00 Sodium (136-145) mEq/L Potassium (3.5-5.1) mEq/L Chloride (98-107) mEq/L Carbon Dioxide (21-32) mEq/L Anion Gap (5-15) BUN (7-18) mg/dL Creatinine (0.7-1.3) mg/dL Est Cr Clr Drug Dosing mL/min Estimated GFR (MDRD) (>60) mL/min BUN/Creatinine Ratio (14-18) Glucose (74-106) mg/dL Calcium (8.5-10.1) mg/dL Phosphorus (2.6-4.7) mg/dL Magnesium (1.8-2.4) mg/dl Total Bilirubin (0.2-1.0) mg/dL AST (15-37) U/L ALT (16-63) U/L Alkaline Phosphatase (46-116) U/L CK-MB (CK-2) 0.9 (0-3.6) ng/ml Troponin I < 0.017 (0.00-0.056) ng/mL Total Protein (6.4-8.2) g/dl Albumin (3.4-5.0) g/dl Globulin gm/dL Albumin/Globulin Ratio (1-2) 10/06/16 10/06/16 10/06/16 Range/Units 00:07 00:07 05:05 WBC 7.59 5.13 (4.23-9.07) K/mm3 RBC 3.68 L 3.61 L (4.63-6.08) M/mm3 Hgb 11.9 L 11.8 L (13.7-17.5) gm/L Hct 34.1 L 33.6 L (40.1-51.0) % MCV 92.7 H 93.1 H (79.0-92.2) fl MCH 32.3 H 32.7 H (25.7-32.2) pg MCHC 34.9 35.1 (32.2-35.5) g/dl RDW Std Deviation 48.6 H 50.2 H (35.1-43.9) fL Plt Count 162 L 165 (163-337) K/mm3 MPV 8.9 L 9.0 L (9.4-12.3) fl Neut % (Auto) (34.0-67.9) % Lymph % (Auto) (21.8-53.1) % [place] % (Auto) (5.3-12.2) % Eos % (Auto) (0.8-7.0) Baso % (Auto) (0.1-1.2) % Neut # (Auto) (1.78-5.38) K/mm3 Lymph # (Auto) (1.32-3.57) K/mm3 [place] # (Auto) (0.30-0.82) K/mm3 Eos # (Auto) (0.04-0.54) K/mm3 Baso # (Auto) (0.01-0.08) K/mm3 PT (8.0-13.0) SECONDS INR Sodium 137 (136-145) mEq/L Potassium 4.2 (3.5-5.1) mEq/L Chloride 105 (98-107) mEq/L Carbon Dioxide 27 (21-32) mEq/L Anion Gap 9.2 (5-15) BUN 14 (7-18) mg/dL Creatinine 1.0 (0.7-1.3) mg/dL Est Cr Clr Drug Dosing 82.13 mL/min Estimated GFR (MDRD) > 60 (>60) mL/min BUN/Creatinine Ratio 14.0 (14-18) Glucose 117 H (74-106) mg/dL Calcium 7.3 L (8.5-10.1) mg/dL Phosphorus 3.1 (2.6-4.7) mg/dL Magnesium 1.3 L (1.8-2.4) mg/dl Total Bilirubin 0.8 (0.2-1.0) mg/dL AST 10 L (15-37) U/L ALT 28 (16-63) U/L Alkaline Phosphatase 59 (46-116) U/L CK-MB (CK-2) (0-3.6) ng/ml Troponin I (0.00-0.056) ng/mL Total Protein 4.7 L (6.4-8.2) g/dl Albumin 2.5 L (3.4-5.0) g/dl Globulin 2.2 gm/dL Albumin/Globulin Ratio 1.1 (1-2) / Range/Units 05:05 WBC (4.23-9.07) K/mm3 RBC (4.63-6.08) M/mm3 Hgb (13.7-17.5) gm/L Hct (40.1-51.0) % MCV (79.0-92.2) fl MCH (25.7-32.2) pg MCHC (32.2-35.5) g/dl RDW Std Deviation (35.1-43.9) fL Plt Count (163-337) K/mm3 MPV (9.4-12.3) fl Neut % (Auto) (34.0-67.9) % Lymph % (Auto) (21.8-53.1) % [place] % (Auto) (5.3-12.2) % Eos % (Auto) (0.8-7.0) Baso % (Auto) (0.1-1.2) % Neut # (Auto) (1.78-5.38) K/mm3 Lymph # (Auto) (1.32-3.57) K/mm3 [place] # (Auto) (0.30-0.82) K/mm3 Eos # (Auto) (0.04-0.54) K/mm3 Baso # (Auto) (0.01-0.08) K/mm3 PT (8.0-13.0) SECONDS INR Sodium 137 (136-145) mEq/L Potassium 4.0 (3.5-5.1) mEq/L Chloride 105 (98-107) mEq/L Carbon Dioxide 27 (21-32) mEq/L Anion Gap 9.0 (5-15) BUN 12 (7-18) mg/dL Creatinine 0.9 (0.7-1.3) mg/dL Est Cr Clr Drug Dosing 91.25 mL/min Estimated GFR (MDRD) > 60 (>60) mL/min BUN/Creatinine Ratio 13.3 L (14-18) Glucose 100 (74-106) mg/dL Calcium 7.7 L (8.5-10.1) mg/dL Phosphorus 3.3 (2.6-4.7) mg/dL Magnesium 2.0 (1.8-2.4) mg/dl Total Bilirubin 0.8 (0.2-1.0) mg/dL AST 19 (15-37) U/L ALT 31 (16-63) U/L Alkaline Phosphatase 58 (46-116) U/L CK-MB (CK-2) (0-3.6) ng/ml Troponin I (0.00-0.056) ng/mL Total Protein 4.8 L (6.4-8.2) g/dl Albumin 2.6 L (3.4-5.0) g/dl Globulin 2.2 gm/dL Albumin/Globulin Ratio 1.2 (1-2) Med Orders - Current: Current Medications Allopurinol (Zyloprim) 300 mg PO DAILY [facility] Last Admin: 10/06/16 08:00 Dose: 300 mg Benzocaine/Menthol (Cepacol Sore Throat) 1 lozenge MUCMEM 5XDAY PRN PRN Reason: Sore Throat Flunisolide (Nasalide Nasal [place]) 0 ml BRITTANEY Q12H [facility] Last Admin: 10/06/16 08:06 Dose: Not Given Hydromorphone HCl (Dilaudid) 0.5 mg IVPUSH Q2H PRN PRN Reason: Pain Last Admin: 10/06/16 05:24 Dose: 0.5 mg Non-Formulary Medication (Dextroamphetamine/Amphetamine [Adderall 20 Mg Tablet] ) 20 mg PO TID [facility] Ondansetron HCl (Zofran) 4 mg IVPUSH Q6H PRN PRN Reason: Nausea/Vomiting Pantoprazole Sodium (Protonix) 40 mg PO DAILY@0900 [facility] Last Admin: 10/06/16 08:00 Dose: 40 mg Simvastatin (Zocor) 10 mg PO BEDTIME [facility] Last Admin: 10/05/16 23:07 Dose: Not Given Sodium Chloride (Saline Flush) 10 ml FLUSH ASDIRECTED PRN PRN Reason: Keep Vein Open Last Admin: 10/05/16 16:44 Dose: 10 ml Discontinued Medications Acetaminophen (Tylenol) 650 mg PO ASDIRECTED PRN PRN Reason: * GIVE 30 MIN PRIOR TO PRBC * Stop: 10/05/16 23:59 Thrombin 50,000 unit/ Sterile (Water 1,000 ml) 0 unit RECTAL ONETIME ONE Stop: 10/05/16 19:30 Last Admin: 10/05/16 23:53 Dose: Not Given Diphenhydramine HCl (Benadryl) 25 mg IV ASDIRECTED PRN PRN Reason: * GIVE 30 MIN PRIOR TO PRBC * Stop: 10/05/16 23:59 Fentanyl (Sublimaze) Confirm Administered Dose 100 mcg .ROUTE .STK-MED ONE Stop: 10/05/16 21:06 Hydromorphone HCl (Dilaudid) 1 mg IVPUSH ONETIME ONE Stop: 10/05/16 16:38 Last Admin: 10/05/16 16:43 Dose: 1 mg Hydromorphone HCl (Dilaudid) 0.5 mg IVPUSH ONETIME ONE Stop: 10/05/16 17:38 Last Admin: 10/05/16 17:41 Dose: 0.5 mg Sodium Chloride (Normal Saline) 1,000 mls @ 999 mls/hr IV ONETIME ONE Stop: 10/05/16 17:23 Last Admin: 10/05/16 16:24 Dose: 999 mls/hr Lactated Ringer's (Ringers, Lactated) 1,000 mls @ 150 mls/hr IV ASDIRECTED [place] Last Admin: 10/05/16 17:30 Dose: 150 mls/hr Lidocaine HCl (Xylocaine-Mpf 1%) Confirm Administered Dose 6 mls @ as directed .ROUTE .STK-MED ONE Stop: 10/05/16 21:06 Lidocaine HCl (Xylocaine-Mpf 1%) Confirm Administered Dose 2 mls @ as directed .ROUTE .STK-MED ONE Stop: 10/05/16 21:13 Lidocaine HCl (Xylocaine-Mpf 1%) Confirm Administered Dose 2 mls @ as directed .ROUTE .STK-MED ONE Stop: 10/05/16 21:13 Lactated Ringer's (Ringers, Lactated) Confirm Administered Dose 1,000 mls @ as directed .ROUTE .STK-MED ONE Stop: 10/05/16 21:31 Lactated Ringer's (Ringers, Lactated) Confirm Administered Dose 1,000 mls @ as directed .ROUTE .STK-MED ONE Stop: 10/05/16 21:31 Sodium Chloride (Normal Saline) Confirm Administered Dose 1,000 mls @ as directed .ROUTE .STK-MED ONE Stop: 10/05/16 21:32 Sodium Chloride (Normal Saline) 1,000 mls @ 100 mls/hr IV ASDIRECTED [facility] Last Admin: 10/06/16 00:55 Dose: 100 mls/hr Magnesium Sulfate 2 gm/ Premix 50 mls @ 25 mls/hr IV ONETIME ONE Stop: 10/06/16 02:44 Last Admin: 10/06/16 00:56 Dose: 25 mls/hr Magnesium Sulfate (Magnesium Sulfate 2 Gm In Water 50 Ml) Confirm Administered Dose 50 mls @ as directed .ROUTE .STK-MED ONE Stop: 10/06/16 00:51 Last Admin: 10/06/16 00:55 Dose: 2 gm Pantoprazole Sodium (Protonix) 40 mg PO DAILY@0700 [facility] Propofol (Diprivan 20 Ml) Confirm Administered Dose 400 mg .ROUTE .STK-MED ONE Stop: 10/05/16 21:06 Propofol (Diprivan 20 Ml) Confirm Administered Dose 200 mg .ROUTE .STK-MED ONE Stop: 10/05/16 21:31 Propofol (Diprivan 20 Ml) Confirm Administered Dose 200 mg .ROUTE .STK-MED ONE Stop: 10/05/16 22:04 Thrombin (Thrombin-Jmi) Confirm Administered Dose 30,000 unit .ROUTE .STK-MED ONE Stop: 10/05/16 20:39 Thrombin (Thrombin-Jmi) Confirm Administered Dose 5,000 unit .ROUTE .STK-MED ONE Stop: 10/05/16 20:56 Last Admin: 10/05/16 23:52 Dose: Not Given - Exam Quality Assessment: No: supplemental oxygen General: alert, oriented, cooperative, no acute distress Lungs: Clear to auscultation, Normal respiratory effort Cardiovascular: Regular Rate, Regular Rhythm, Tachycardia (intermittent sinus tachycardia to one-teens) Abdomen: soft, no tenderness, no distension Skin: warm, dry, intact Neurological: no new focal deficit Psy/Mental Status: alert, normal affect, normal mood - Problem List & Annotations (1) Colonoscopy causing post-procedural bleeding SNOMED Code(s): 429180281 Code(s): K91.840 - POSTPROC HEMOR OF A DGSTV SYS ORG FOL A DGSTV SYS PROCEDURE Status: Resolved Priority: High Current Visit: Yes (2) Acute post-hemorrhagic anemia SNOMED Code(s): 379456550 Code(s): D62 - ACUTE POSTHEMORRHAGIC ANEMIA Status: Acute Current Visit: Yes (3) Hypotension SNOMED Code(s): 53001126 Code(s): I95.9 - HYPOTENSION, UNSPECIFIED Status: Resolved Current Visit : Yes (4) Tachycardia SNOMED Code(s): 7708871 Code(s): R00.0 - TACHYCARDIA, UNSPECIFIED Status: Acute Current Visit: Yes (5) Sleep apnea in adult SNOMED Code(s): 52724753 Code(s): G47.30 - SLEEP APNEA, UNSPECIFIED Status: Acute Current Visit: Yes (6) CAD (coronary artery disease) SNOMED Code(s): 19192710 Code(s): I25.10 - ATHSCL HEART DISEASE OF [place] CORONARY ARTERY W/O ANG PCTRS Status: Acute Current Visit: Yes (7) Polycythemia SNOMED Code(s): 082932301 Code(s): D75.1 - SECONDARY POLYCYTHEMIA Status: Acute Current Visit: Yes (8) GERD (gastroesophageal reflux disease) SNOMED Code(s): 831094648 Code(s): K21.9 - GASTRO-ESOPHAGEAL REFLUX DISEASE WITHOUT ESOPHAGITIS Status: Acute Current Visit: No (9) Hiatal hernia SNOMED Code(s): 68238241 Code(s): K44.9 - DIAPHRAGMATIC HERNIA WITHOUT OBSTRUCTION OR GANGRENE Status: Acute Current Visit: No (10) Hypertension SNOMED Code(s): 73401439 Code(s): I10 - ESSENTIAL (PRIMARY) HYPERTENSION Status: Acute Current Visit: No (11) History of colon polyps SNOMED Code(s): 893379765 Code(s): Z86.010 - PERSONAL HISTORY OF COLONIC POLYPS Status: Acute Current Visit: Yes (12) BPH (benign prostatic hyperplasia) SNOMED Code(s): 969969632, 838819413 Code(s): N40.0 - BENIGN PROSTATIC HYPERPLASIA WITHOUT LOWER URINRY TRACT SYMP Status: Acute Current Visit: Yes (13) ADD (attention deficit disorder) SNOMED Code(s): 858248419 Code(s): F98.8 - OTH BEHAV/EMOTN DISORD W ONSET USLY OCCUR IN CHLDHD AND ADOL Status: Acute Current Visit: Yes (14) Anxiety SNOMED Code(s): 45287036 Code(s): F41.9 - ANXIETY DISORDER, UNSPECIFIED Status: Acute Current Visit: Yes (15) Low testosterone in male SNOMED Code(s): 3625904825691 Code(s): E29.1 - TESTICULAR HYPOFUNCTION Status: Acute Current Visit: Yes (16) GI bleed SNOMED Code(s): 06912108 Code(s): K92.2 - GASTROINTESTINAL HEMORRHAGE, UNSPECIFIED Status: Acute Current Visit: Yes Qualifiers: GI bleed type/associated pathology: unspecified gastrointestinal hemorrhage type Qualified Code(s): K92.2 - Gastrointestinal hemorrhage, unspecified (17) Renal insufficiency SNOMED Code(s): 554203960, 600271409 Code(s): N28.9 - DISORDER OF KIDNEY AND URETER, UNSPECIFIED Status: Acute Current Visit: Yes - Problem List Review Problem List Initiated/Reviewed/Updated: Yes - My Orders Last 24 Hours: My Active Orders 10/05/16 18:36 Patient Status [ADT] Routine 10/05/16 19:10 CXR [Chest 1V Frontal] [CR] Stat 10/05/16 19:19 Blood Transfusion Reflex Orders [OM.PC] Routine Transfuse PRBC [Transfuse Red Blood Cells] [COMM] Stat Transfuse Red Blood Cells [COMM] Urgent 10/05/16 19:56 Schedule Procedure [COMM] Stat 10/05/16 20:17 Transfuse Fresh Frozen Plasma [COMM] Stat Transfuse PRBC [Transfuse Red Blood Cells] [COMM] Stat 10/05/16 21:00 Dextroamphetamine/Amphetamine [Adderall 20 mg Tablet] 20 mg PO TID Simvastatin [Zocor] 10 mg PO BEDTIME 10/05/16 22:05 RT Incentive Spirometry [RC] ASDIRECTED Ondansetron [Zofran] 4 mg IVPUSH Q6H PRN DVT/VTE Prophylaxis Reflex [OM.PC] Routine VTE Pharmacological Contraindications [AST] Per Unit Routine Resuscitation Status Routine 10/05/16 22:06 Intake and Output [RC] 04,10,16,22 10/05/16 22:08 Antiembolic Devices [RC] .Routine 10/05/16 22:09 Antiembolic Hose [OM.PC] Per Unit Routine 10/05/16 22:56 Benzocaine/Cetylpyrd/Menthol [Cepacol Sore Throat] 1 lozenge MUCMEM 5XDAY PRN HYDROmorphone [Dilaudid] 0.5 mg IVPUSH Q2H PRN 10/06/16 09:00 Allopurinol [Zyloprim] 300 mg PO DAILY Flunisolide [Nasalide Nasal [place]] 0 ml BRITTANEY Q12H Pantoprazole [ProTONIX] 40 mg PO DAILY@0900 10/06/16 11:59 CBC W/O DIFF,HEMOGRAM [HEME] Q6H 10/06/16 17:59 CBC W/O DIFF,HEMOGRAM [HEME] Q6H 10/06/16 Breakfast Regular Diet [DIET] - Assessment Assessment:: 61 yo M with post-colonoscopy bleeding from the cecum s/p colonoscopy w/ clipping and thrombin enema If Hb remains stable when rechecked at noon and patient continues to tolerate diet, will d/c this late afternoon. Recommend not proceeding with cruise at this time and staying in major cities for vacation with easy access to medical care. Letter prepared for patient to send to [employer]. As completely asymptomatic now, will not transfuse further despite mild intermittent sinus tachycardia. Total transfusion - 3 units PRBCs, 1 unit FFP - Plan Plan:: 61 yo M with GI bleeding likely 2/2 multiple polypectomies on colonoscopy yesterday Patient with polycythemia and decr Hb 18->12.6 with ongoing losses and significantly symptomatic. 2 units O negative given while crossmatch completed. Will proceed with emergent colonoscopy to control hemorrhage. Risks and benefits of colonoscopy and blood transfusion discussed with the patient and his . Consent obtained from patient. Will plan for ongoing transfusion at this time and 1 unit FFP until hemorrhage controlled. No evidence of pneumoperitoneum or vascular overload. 75 minutes spent at the bedside in direct care of the patient.
--- NOTE | 2016-10-06 10:35 | PCM.DCSUM1 ---
Discharge Summary - Hospital Course Free Text/Narrative:: The patient is a 61-year-old man who is a patient of Dr. Raheel Hernandez who presented to the emergency department on October 05, the day after his colonoscopy with 20 polypectomies, with gross hematochezia. The patient also had presyncope. He does have a history of polycythemia, managed by Dr. Jodee Guerra, with a baseline hemoglobin of 18. Ultimately, the patient's hemoglobin was decreasing quite rapidly and he was significantly symptomatic and a 3 unit packed red blood cell transfusion was completed as well as 1 unit of FFP. The patient was taken to the operating room and colonoscopy was performed. There was a polypectomy site that appeared to have been bleeding in the cecum, although it was not actively bleeding at the time of the colonoscopy. The clot was irrigated from this area and clips were applied. A thrombin enema was instilled. The patient was subsequently observed in the ICU and had no further recurrence of his bleeding. He was discharged in stable condition the following day, tolerating a regular diet. I have advised him not to go on the [place] cruise he had planned for Friday and a letter was written to provide to his travel company. He is to follow-up with me as previously scheduled in October. He is to contact me or go to his nearest emergency department immediately for any recurrence of gross hematochezia. On the day of discharge his hemoglobin was 12.1, platelets were 173 and he was asymptomatic from his relative anemia with the exception of mild sinus tachycardia with activity. - Discharge Data Discharge Date: 10/06/16 Discharge Disposition: Home, Self-Care 01 Condition: Good - Discharge Diagnosis/Problem(s) (1) Colonoscopy causing post-procedural bleeding SNOMED Code(s): 910490973 ICD Code: K91.840 - POSTPROC HEMOR OF A DGSTV SYS ORG FOL A DGSTV SYS PROCEDURE Status: Resolved Priority: High Current Visit: Yes (2) Acute post-hemorrhagic anemia SNOMED Code(s): 678304397 ICD Code: D62 - ACUTE POSTHEMORRHAGIC ANEMIA Status: Acute Current Visit : Yes (3) Hypotension SNOMED Code(s): 24179374 ICD Code: I95.9 - HYPOTENSION, UNSPECIFIED Status: Resolved Current Visit : Yes (4) Tachycardia SNOMED Code(s): 3807646 ICD Code: R00.0 - TACHYCARDIA, UNSPECIFIED Status: Acute Current Visit: Yes (5) Sleep apnea in adult SNOMED Code(s): 80718676 ICD Code: G47.30 - SLEEP APNEA, UNSPECIFIED Status: Acute Current Visit: Yes (6) CAD (coronary artery disease) SNOMED Code(s): 90981702 ICD Code: I25.10 - ATHSCL HEART DISEASE OF [place] CORONARY ARTERY W/O ANG PCTRS Status: Acute Current Visit: Yes Qualifiers: [place] vs. transplanted heart: [place] heart Associated angina: without angina (7) Polycythemia SNOMED Code(s): 402383332 ICD Code: D75.1 - SECONDARY POLYCYTHEMIA Status: Acute Current Visit: Yes (8) GERD (gastroesophageal reflux disease) SNOMED Code(s): 846842486 ICD Code: K21.9 - GASTRO-ESOPHAGEAL REFLUX DISEASE WITHOUT ESOPHAGITIS Status: Acute Current Visit: No (9) Hiatal hernia SNOMED Code(s): 55081198 ICD Code: K44.9 - DIAPHRAGMATIC HERNIA WITHOUT OBSTRUCTION OR GANGRENE Status: Acute Current Visit: No (10) Hypertension SNOMED Code(s): 58022983 ICD Code: I10 - ESSENTIAL (PRIMARY) HYPERTENSION Status: Acute Current Visit: No (11) History of colon polyps SNOMED Code(s): 540289115 ICD Code: Z86.010 - PERSONAL HISTORY OF COLONIC POLYPS Status: Acute Current Visit: Yes (12) BPH (benign prostatic hyperplasia) SNOMED Code(s): 202915332, 779507923 ICD Code: N40.0 - BENIGN PROSTATIC HYPERPLASIA WITHOUT LOWER URINRY TRACT SYMP Status: Acute Current Visit: Yes (13) ADD (attention deficit disorder) SNOMED Code(s): 517001642 ICD Code: F98.8 - OTH BEHAV/EMOTN DISORD W ONSET USLY OCCUR IN CHLDHD AND ADOL Status: Acute Current Visit: Yes (14) Anxiety SNOMED Code(s): 52197026 ICD Code: F41.9 - ANXIETY DISORDER, UNSPECIFIED Status: Acute Current Visit: Yes (15) Low testosterone in male SNOMED Code(s): 9286283253254 ICD Code: E29.1 - TESTICULAR HYPOFUNCTION Status: Acute Current Visit: Yes (16) GI bleed SNOMED Code(s): 75093561 ICD Code: K92.2 - GASTROINTESTINAL HEMORRHAGE, UNSPECIFIED Status: Acute Current Visit: Yes Qualifiers: GI bleed type/associated pathology: unspecified gastrointestinal hemorrhage type Qualified Code(s): K92.2 - Gastrointestinal hemorrhage, unspecified (17) Renal insufficiency SNOMED Code(s): 860608131, 582219035 ICD Code: N28.9 - DISORDER OF KIDNEY AND URETER, UNSPECIFIED Status: Acute Current Visit: Yes - Patient Summary/Data Operative Procedure(s) Performed: 10/05/16 Diagnostic colonoscopy with clip placement, instillation of thrombin enema - Patient Instructions Diet: Usual Diet as Tolerated - Discharge Plan Home Medications: Home Meds Allopurinol [Zyloprim] 300 mg PO DAILY 11/15/15 [History] Lisinopril/Hydrochlorothiazide [Lisinopril-Hctz 20-12.5 mg Tab] 12.5 mg PO DAILY 11/15/15 [History] Tadalafil [Cialis] 5 mg PO ASDIRECTED PRN 11/15/15 [History] Hydrocodone/Acetaminophen [[place] 10-325] 1 each PO Q6H PRN #15 tablet 11/17/15 [ Rx] Aspirin [Ecotrin] 81 mg PO DAILY 10/05/16 [History] Atenolol 50 mg PO DAILY 10/05/16 [History] Dexlansoprazole [Dexilant] 60 mg PO DAILY 10/05/16 [History] Dextroamphetamine/Amphetamine [Adderall 20 mg Tablet] 20 mg PO TID 10/05/16 [ History] Mometasone Furoate [Nasonex [place]] 2 spray BRITTANEY DAILY 10/05/16 [History] Pravastatin [Pravachol] 20 mg PO BEDTIME 10/05/16 [History] Patient Handouts: Blood Transfusion, [id number], Gastrointestinal Bleeding, [id number] Forms: ED Department Discharge Referrals: Lisa Grullon MD [Physician] - (Keep previously scheduled appointment on 10/29) - Discharge Summary/Plan Comment DC Time >30 min.: No - Patient Data Vitals - Most Recent: Last Vital Signs Temp 98.0 F 10/06/16 07:57 Pulse 110 H 10/05/16 20:39 Resp 14 10/06/16 07:57 BP 114/82 10/06/16 07:57 Pulse Ox 96 10/06/16 07:57 Weight - Most Recent: 216 lb 7.903 oz I&O - Last 24 hours: Intake & Output 10/05/16 10/06/16 10/06/16 22:59 06:59 14:59 Intake Total 2280 2250 0 Output Total 850 Balance 2280 1400 0 Lab Results - Last 24 hrs: Laboratory Results - last 24 hr 10/05/16 10/05/16 10/05/16 Range/Units 18:40 18:40 18:40 WBC 10.83 H (4.23-9.07) K/mm3 RBC 3.75 L (4.63-6.08) M/mm3 Hgb 12.6 L (13.7-17.5) gm/L Hct 35.8 L (40.1-51.0) % MCV 95.5 H (79.0-92.2) fl MCH 33.6 H (25.7-32.2) pg MCHC 35.2 (32.2-35.5) g/dl RDW Std Deviation 42.3 (35.1-43.9) fL Plt Count 256 (163-337) K/mm3 MPV 8.8 L (9.4-12.3) fl Neut % (Auto) 65.2 (34.0-67.9) % Lymph % (Auto) 23.7 (21.8-53.1) % [place] % (Auto) 8.8 (5.3-12.2) % Eos % (Auto) 1.2 (0.8-7.0) Baso % (Auto) 0.5 (0.1-1.2) % Neut # (Auto) 7.06 H (1.78-5.38) K/mm3 Lymph # (Auto) 2.57 (1.32-3.57) K/mm3 [place] # (Auto) 0.95 H (0.30-0.82) K/mm3 Eos # (Auto) 0.13 (0.04-0.54) K/mm3 Baso # (Auto) 0.05 (0.01-0.08) K/mm3 PT 10.9 (8.0-13.0) SECONDS INR 1.00 Sodium (136-145) mEq/L Potassium (3.5-5.1) mEq/L Chloride (98-107) mEq/L Carbon Dioxide (21-32) mEq/L Anion Gap (5-15) BUN (7-18) mg/dL Creatinine (0.7-1.3) mg/dL Est Cr Clr Drug Dosing mL/min Estimated GFR (MDRD) (>60) mL/min BUN/Creatinine Ratio (14-18) Glucose (74-106) mg/dL Calcium (8.5-10.1) mg/dL Phosphorus (2.6-4.7) mg/dL Magnesium (1.8-2.4) mg/dl Total Bilirubin (0.2-1.0) mg/dL AST (15-37) U/L ALT (16-63) U/L Alkaline Phosphatase (46-116) U/L CK-MB (CK-2) 0.9 (0-3.6) ng/ml Troponin I < 0.017 (0.00-0.056) ng/mL Total Protein (6.4-8.2) g/dl Albumin (3.4-5.0) g/dl Globulin gm/dL Albumin/Globulin Ratio (1-2) 10/06/16 10/06/16 10/06/16 Range/Units 00:07 00:07 05:05 WBC 7.59 5.13 (4.23-9.07) K/mm3 RBC 3.68 L 3.61 L (4.63-6.08) M/mm3 Hgb 11.9 L 11.8 L (13.7-17.5) gm/L Hct 34.1 L 33.6 L (40.1-51.0) % MCV 92.7 H 93.1 H (79.0-92.2) fl MCH 32.3 H 32.7 H (25.7-32.2) pg MCHC 34.9 35.1 (32.2-35.5) g/dl RDW Std Deviation 48.6 H 50.2 H (35.1-43.9) fL Plt Count 162 L 165 (163-337) K/mm3 MPV 8.9 L 9.0 L (9.4-12.3) fl Neut % (Auto) (34.0-67.9) % Lymph % (Auto) (21.8-53.1) % Wake % (Auto) (5.3-12.2) % Eos % (Auto) (0.8-7.0) Baso % (Auto) (0.1-1.2) % Neut # (Auto) (1.78-5.38) K/mm3 Lymph # (Auto) (1.32-3.57) K/mm3 Wake # (Auto) (0.30-0.82) K/mm3 Eos # (Auto) (0.04-0.54) K/mm3 Baso # (Auto) (0.01-0.08) K/mm3 PT (8.0-13.0) SECONDS INR Sodium 137 (136-145) mEq/L Potassium 4.2 (3.5-5.1) mEq/L Chloride 105 (98-107) mEq/L Carbon Dioxide 27 (21-32) mEq/L Anion Gap 9.2 (5-15) BUN 14 (7-18) mg/dL Creatinine 1.0 (0.7-1.3) mg/dL Est Cr Clr Drug Dosing 82.13 mL/min Estimated GFR (MDRD) > 60 (>60) mL/min BUN/Creatinine Ratio 14.0 (14-18) Glucose 117 H (74-106) mg/dL Calcium 7.3 L (8.5-10.1) mg/dL Phosphorus 3.1 (2.6-4.7) mg/dL Magnesium 1.3 L (1.8-2.4) mg/dl Total Bilirubin 0.8 (0.2-1.0) mg/dL AST 10 L (15-37) U/L ALT 28 (16-63) U/L Alkaline Phosphatase 59 (46-116) U/L CK-MB (CK-2) (0-3.6) ng/ml Troponin I (0.00-0.056) ng/mL Total Protein 4.7 L (6.4-8.2) g/dl Albumin 2.5 L (3.4-5.0) g/dl Globulin 2.2 gm/dL Albumin/Globulin Ratio 1.1 (1-2) / Range/Units 05:05 WBC (4.23-9.07) K/mm3 RBC (4.63-6.08) M/mm3 Hgb (13.7-17.5) gm/L Hct (40.1-51.0) % MCV (79.0-92.2) fl MCH (25.7-32.2) pg MCHC (32.2-35.5) g/dl RDW Std Deviation (35.1-43.9) fL Plt Count (163-337) K/mm3 MPV (9.4-12.3) fl Neut % (Auto) (34.0-67.9) % Lymph % (Auto) (21.8-53.1) % [place] % (Auto) (5.3-12.2) % Eos % (Auto) (0.8-7.0) Baso % (Auto) (0.1-1.2) % Neut # (Auto) (1.78-5.38) K/mm3 Lymph # (Auto) (1.32-3.57) K/mm3 [place] # (Auto) (0.30-0.82) K/mm3 Eos # (Auto) (0.04-0.54) K/mm3 Baso # (Auto) (0.01-0.08) K/mm3 PT (8.0-13.0) SECONDS INR Sodium 137 (136-145) mEq/L Potassium 4.0 (3.5-5.1) mEq/L Chloride 105 (98-107) mEq/L Carbon Dioxide 27 (21-32) mEq/L Anion Gap 9.0 (5-15) BUN 12 (7-18) mg/dL Creatinine 0.9 (0.7-1.3) mg/dL Est Cr Clr Drug Dosing 91.25 mL/min Estimated GFR (MDRD) > 60 (>60) mL/min BUN/Creatinine Ratio 13.3 L (14-18) Glucose 100 (74-106) mg/dL Calcium 7.7 L (8.5-10.1) mg/dL Phosphorus 3.3 (2.6-4.7) mg/dL Magnesium 2.0 (1.8-2.4) mg/dl Total Bilirubin 0.8 (0.2-1.0) mg/dL AST 19 (15-37) U/L ALT 31 (16-63) U/L Alkaline Phosphatase 58 (46-116) U/L CK-MB (CK-2) (0-3.6) ng/ml Troponin I (0.00-0.056) ng/mL Total Protein 4.8 L (6.4-8.2) g/dl Albumin 2.6 L (3.4-5.0) g/dl Globulin 2.2 gm/dL Albumin/Globulin Ratio 1.2 (1-2) Med Orders - Current: Current Medications Allopurinol (Zyloprim) 300 mg PO DAILY [facility] Last Admin: 10/06/16 08:00 Dose: 300 mg Benzocaine/Menthol (Cepacol Sore Throat) 1 lozenge MUCMEM 5XDAY PRN PRN Reason: Sore Throat Flunisolide (Nasalide Nasal [place]) 0 ml BRITTANEY Q12H [facility] Last Admin: 10/06/16 08:06 Dose: Not Given Hydromorphone HCl (Dilaudid) 0.5 mg IVPUSH Q2H PRN PRN Reason: Pain Last Admin: 10/06/16 05:24 Dose: 0.5 mg Non-Formulary Medication (Dextroamphetamine/Amphetamine [Adderall 20 Mg Tablet] ) 20 mg PO TID [facility] Ondansetron HCl (Zofran) 4 mg IVPUSH Q6H PRN PRN Reason: Nausea/Vomiting Pantoprazole Sodium (Protonix) 40 mg PO DAILY@0900 [facility] Last Admin: 10/06/16 08:00 Dose: 40 mg Simvastatin (Zocor) 10 mg PO BEDTIME [facility] Last Admin: 10/05/16 23:07 Dose: Not Given Sodium Chloride (Saline Flush) 10 ml FLUSH ASDIRECTED PRN PRN Reason: Keep Vein Open Last Admin: 10/05/16 16:44 Dose: 10 ml Discontinued Medications Acetaminophen (Tylenol) 650 mg PO ASDIRECTED PRN PRN Reason: * GIVE 30 MIN PRIOR TO PRBC * Stop: 10/05/16 23:59 Thrombin 50,000 unit/ Sterile (Water 1,000 ml) 0 unit RECTAL ONETIME ONE Stop: 10/05/16 19:30 Last Admin: 10/05/16 23:53 Dose: Not Given Diphenhydramine HCl (Benadryl) 25 mg IV ASDIRECTED PRN PRN Reason: * GIVE 30 MIN PRIOR TO PRBC * Stop: 10/05/16 23:59 Fentanyl (Sublimaze) Confirm Administered Dose 100 mcg .ROUTE .STK-MED ONE Stop: 10/05/16 21:06 Hydromorphone HCl (Dilaudid) 1 mg IVPUSH ONETIME ONE Stop: 10/05/16 16:38 Last Admin: 10/05/16 16:43 Dose: 1 mg Hydromorphone HCl (Dilaudid) 0.5 mg IVPUSH ONETIME ONE Stop: 10/05/16 17:38 Last Admin: 10/05/16 17:41 Dose: 0.5 mg Sodium Chloride (Normal Saline) 1,000 mls @ 999 mls/hr IV ONETIME ONE Stop: 10/05/16 17:23 Last Admin: 10/05/16 16:24 Dose: 999 mls/hr Lactated Ringer's (Ringers, Lactated) 1,000 mls @ 150 mls/hr IV ASDIRECTED [facility] Last Admin: 10/05/16 17:30 Dose: 150 mls/hr Lidocaine HCl (Xylocaine-Mpf 1%) Confirm Administered Dose 6 mls @ as directed .ROUTE .STK-MED ONE Stop: 10/05/16 21:06 Lidocaine HCl (Xylocaine-Mpf 1%) Confirm Administered Dose 2 mls @ as directed .ROUTE .STK-MED ONE Stop: 10/05/16 21:13 Lidocaine HCl (Xylocaine-Mpf 1%) Confirm Administered Dose 2 mls @ as directed .ROUTE .STK-MED ONE Stop: 10/05/16 21:13 Lactated Ringer's (Ringers, Lactated) Confirm Administered Dose 1,000 mls @ as directed .ROUTE .STK-MED ONE Stop: 10/05/16 21:31 Lactated Ringer's (Ringers, Lactated) Confirm Administered Dose 1,000 mls @ as directed .ROUTE .STK-MED ONE Stop: 10/05/16 21:31 Sodium Chloride (Normal Saline) Confirm Administered Dose 1,000 mls @ as directed .ROUTE .STK-MED ONE Stop: 10/05/16 21:32 Sodium Chloride (Normal Saline) 1,000 mls @ 100 mls/hr IV ASDIRECTED [facility] Last Admin: 10/06/16 00:55 Dose: 100 mls/hr Magnesium Sulfate 2 gm/ Premix 50 mls @ 25 mls/hr IV ONETIME ONE Stop: 10/06/16 02:44 Last Admin: 10/06/16 00:56 Dose: 25 mls/hr Magnesium Sulfate (Magnesium Sulfate 2 Gm In Water 50 Ml) Confirm Administered Dose 50 mls @ as directed .ROUTE .STK-MED ONE Stop: 10/06/16 00:51 Last Admin: 10/06/16 00:55 Dose: 2 gm Pantoprazole Sodium (Protonix) 40 mg PO DAILY@0700 [place] Propofol (Diprivan 20 Ml) Confirm Administered Dose 400 mg .ROUTE .STK-MED ONE Stop: 10/05/16 21:06 Propofol (Diprivan 20 Ml) Confirm Administered Dose 200 mg .ROUTE .STK-MED ONE Stop: 10/05/16 21:31 Propofol (Diprivan 20 Ml) Confirm Administered Dose 200 mg .ROUTE .STK-MED ONE Stop: 10/05/16 22:04 Thrombin (Thrombin-Jmi) Confirm Administered Dose 30,000 unit .ROUTE .STK-MED ONE Stop: 10/05/16 20:39 Thrombin (Thrombin-Jmi) Confirm Administered Dose 5,000 unit .ROUTE .STK-MED ONE Stop: 10/05/16 20:56 Last Admin: 10/05/16 23:52 Dose: Not Given *Q Meaningful Use (DIS) - VTE *Q VTE Criteria *Q: VTE Pharmacological Contraindications *Q: Active Hemorrhage - Stroke *Q Stroke Criteria *Q: - AMI *Q AMI Criteria *Q:
[2016-10-06 12:05] VITALS: BP 133/87
--- NOTE | 2016-10-07 07:37 | CR ---
Chest: Portable view of the chest was obtained. Comparison: Previous chest x-ray of 11/15/15. Heart size is normal. Mild tortuosity of the thoracic aorta is seen. Lungs are clear. Bony structures are grossly intact. Impression: 1. Nothing acute is appreciated on portable chest x-ray. Diagnostic code #1 I agree with preliminary report issued by [facility] ([facility] report finalized on 10/05/16, 9:24 PM Central Time)
--- NOTE | 2016-10-07 07:37 | CR ---
Abdomen: Decubitus view of the abdomen was obtained. Comparison: No previous abdominal x-ray, previous CT abdomen and pelvis exam of 11/15/15 is available. Scattered air-fluid levels are seen which appear within normal limits. No small bowel or colonic dilatation is identified. No free air is seen. Bony structures are unremarkable. Impression: 1. Nonspecific decubitus view of the abdomen. Diagnostic code #2
--- NOTE | 2016-10-26 12:22 | PCM.OPNOTE ---
- General Post-Op/Procedure Note Date of Surgery/Procedure: 10/05/16 Operative Procedure(s): Therapeutic colonoscopy with clip placement and thrombin enema Pre Op Diagnosis: Gastrointestinal bleeding after colonoscopy Post-Op Diagnosis: Suspected bleeding from cecal polypectomy site, not actively bleeding Anesthesia Technique: MAC Primary Surgeon: Lisa Grullon Anesthesia Provider: Jenna Sauceda Pathology: None EBL in mLs: 400 (old blood suctioned from colon ) Complications: None Condition: Good Free Text/Narrative:: FLUIDS: 2 units packed red blood cells 720 mL, FFP 360 mL, crystalloid 1100 mL; TOTAL - 2280 mL INDICATION FOR PROCEDURE: The patient is a 61-year-old man who is a patient of Dr. Raheel Hernandez. He underwent surveillance colonoscopy with extensive polypectomies removing a total of 20 polyps removed from the colon on 10/04. He presented to the [facility] Emergency Department with maroon loose stools that had begun suddenly on the afternoon of 10/05. He does have a history of polycythemia vera with a baseline hemoglobin of nearly 18, and when his hemoglobin in the ER was "normal" at 14, this showed significant blood loss per his baseline. I admitted the patient and planned to perform emergent colonoscopy as he was continuing to have copious maroon liquid stools. Transfusion of packed red cells was begun prior to going to the operating room. Performing a therapeutic colonoscopy and the associated risks of the procedure had been discussed with the patient and his Dhara. They found these risks acceptable and agreed to proceed. DESCRIPTION OF PROCEDURE: The patient was taken to the operating room and placed in left lateral decubitus position. After induction of adequate sedation an adult Olympus colonoscope was inserted into the rectum and guided under direct visualization to the appendiceal orifice and ileocecal valve. This was challenging due to the amount of old blood within the colon that was suctioned and irrigated out. In the cecum, a large amount of solid clot was noted. Once this was irrigated away, a small clot was found on a polypectomy site in the cecum where a 1 cm polyp had been removed with hot snare. This was not actively bleeding, although it did appear to be the source of bleeding. 3 metallic clips were placed in this area. The colonoscope was then slowly withdrawn, looking for any additional bleeding sites, and instilling a thrombin enema with 50,000 units of thrombin in 1 liter of water. No additional bleeding sites were noted. The scope was withdrawn into the rectum and retroflexed. There was no significant prominence of the patient's internal hemorrhoids and no bleeding noted. The scope was straightened, the colon was desufflated, and the scope was withdrawn. The patient was awakened from sedation and transferred to the recovery room in stable condition having tolerated the procedure well. POSTOPERATIVE PLAN: I discussed with the patient's my intraoperative findings and recommendations. He will be kept in the ICU overnight for further observation. After the procedure he stated he was already feeling better.
== END 2016-10-06 13:20 | disposition home or self-care (01) | DRG 920 ==
LOC: JD.ED 16:07 → JD.MS 17:41 → JD.ICU 18:36
PROVIDERS: ADMIT Surgery; ATTEND Surgery
PROC: 30233N1 Transfusion of Nonautologous Red Blood Cells into Peripheral Vein, Percutaneous Approach (ICD-10-PCS; principal; 2016-10-05)
DX: K91.840 Postprocedural hemorrhage of a digestive system organ or structure following a digestive system procedure (principal); D62 Acute posthemorrhagic anemia; I95.9 Hypotension, unspecified; I25.10 Atherosclerotic heart disease of native coronary artery without angina pectoris; I12.9 Hypertensive chronic kidney disease with stage 1 through stage 4 chronic kidney disease, or unspecified chronic kidney disease; N28.9 Disorder of kidney and ureter, unspecified; I10 Essential (primary) hypertension; J30.9 Allergic rhinitis, unspecified; K21.9 Gastro-esophageal reflux disease without esophagitis; M10.9 Gout, unspecified; G89.29 Other chronic pain; Z79.82 Long term (current) use of aspirin; Z79.899 Other long term (current) drug therapy; Z88.0 Allergy status to penicillin; G47.30 Sleep apnea, unspecified; D75.1 Secondary polycythemia; K44.9 Diaphragmatic hernia without obstruction or gangrene; Z86.010 Personal history of colon polyps; N40.0 Benign prostatic hyperplasia without lower urinary tract symptoms; F41.9 Anxiety disorder, unspecified; E29.1 Testicular hypofunction
CPT/HCPCS: 00810; 36415; 36430; 71010; 71010-26; 74000; 74000-26; 80053; 82553; 83690; 83735; 84100; 84484; 85025; 85027; 85610; 86850; 86900; 86901; 86922; 93005; 96361; 96374; 96376; 99284; 99285-25; A9270-GY; J1170; J2704; J3010; J3475; J7040; J7050; J7120; P9016; P9017

== ENCOUNTER 2016-11-20 08:42 | Observation (INO) | payer MEDICARE, OTHER ==
[~2016-11-20 08:42] MED LIST: Lactated Ringers 1,000 ML IV SCH; Lidocaine 1%/Sod Bicarbonate in NS 8.4% 1 ML Syringe PRN; Midazolam 1 MG/ML 2 ML SDV ONE; Ondansetron 4 MG/2 ML SDV ONE; Propofol 200 MG/20 ML SDV ONE; Rocuronium 50 MG/5 ML Vial ONE; Sodium Chloride 0.9% 10 ML Syringe FLUSH PRN; fentaNYL 250 MCG/5 ML SDV ONE
--- NOTE | 2016-11-20 09:28 | PCM.PREANE ---
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 ) Gastrointestinal: Other (GERD) Neurological: No Symptoms Other: Reports: None, Anxiety - Physical Assessment NPO Status Date: 11/19/16 NPO Status Time: 21:00 O2 Sat by Pulse Oximetry: 97 Respiratory Rate: 16 Vital Signs: Last Vital Signs Temp 36.9 C 11/20/16 09:00 Pulse 75 11/20/16 09:00 Resp 16 11/20/16 09:00 BP 111/85 11/20/16 09:00 Pulse Ox 97 11/20/16 09:00 Height: 1.78 m Weight: 100.244 kg ASA Class: 2 Mental Status: Alert & Oriented x3 Airway Class: Mallampati = 3 Dentition: Reports: Normal Dentition Thyro-Mental Finger Breadths: 3 Mouth Opening Finger Breadths: 3 ROM/Head Extension: Full Lungs: Clear to auscultation, Normal respiratory effort Cardiovascular: Regular Rate, Regular Rhythm - Allergies Allergies/Adverse Reactions: Allergies Allergy/AdvReac Type Severity Reaction Status Date / Time Penicillins Allergy Rash Verified 11/18/16 12:31 - Blood Blood Available: No Product(s) Available: None - Anesthesia Plan Beta Dolly: Atenolol Med Last Dose Date: 11/20/16 Med Last Dose Time: 05:30 - Acknowledgements Anesthesia Type Planned: General Anesthesia Pt an Appropriate Candidate for the Planned Anesthesia: Yes Alternatives and Risks of Anesthesia Discussed w Pt/Guardian: Yes Pt/Guardian Understands and Agrees with Anesthesia Plan: Yes PreAnesthesia Questionnaire HEENT History: Reports: Allergic Rhinitis, Cataract Cardiovascular History: Reports: CAD, High Cholesterol, Hypertension Respiratory History: Reports: Sleep Apnea Gastrointestinal History: Reports: Bowel Obstruction, Colon Polyp, GERD, GI Bleed, Hiatal Hernia, Other (See Below) Other Gastrointestinal History: Gastritis/Esophagitis, tubular adenoma, fatty liver Genitourinary History: Reports: BPH, Other (See Below) Other Genitourinary History: low testosterone 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 injections q2 weeks Hematologic History: Reports: Polycythemia Immunologic History: Reports: None Oncologic (Cancer) History: Reports: None Dermatologic History: Reports: None - Infectious Disease History Infectious Disease History: Reports: Chicken Pox, Measles, Mumps - Past Surgical History HEENT Surgical History: Reports: Cataract Surgery, Laser Surgery Other HEENT Surgeries/Procedures: laser eye surgery Cardiovascular Surgical History: Reports: None GI Surgical History: Reports: Cholecystectomy, Colonoscopy, EGD, Hernia, Abdominal, Hernia Repair/Other, Polypectomy Endocrine Surgical History: Reports: None Musculoskeletal Surgical History: Reports: Shoulder Surgery, Other (See Below) Other Musculoskeletal Surgeries/Procedures:: tricept reattachment, neuroplasty and trasposition of ulnar nerve - SUBSTANCE USE Smoking Status *Q: Former Smoker Tobacco Use Within Last Twelve Months: No Days Per Week of Alcohol Use: 5 Number of Drinks Per Day: 1 Total Drinks Per Week: 5 Recreational Drug Use History: No - HOME MEDS Home Medications: Home Meds Allopurinol [Zyloprim] 300 mg PO DAILY 11/15/15 [History] Lisinopril/Hydrochlorothiazide [Lisinopril-Hctz 20-12.5 mg Tab] 1 tab PO DAILY 11/15/15 [History] Hydrocodone/Acetaminophen [[place] 10-325] 1 each PO Q6H PRN #15 tablet 11/17/15 [ Rx] Atenolol 50 mg PO DAILY 10/05/16 [History] Dexlansoprazole [Dexilant] 60 mg PO DAILY 10/05/16 [History] Dextroamphetamine/Amphetamine [Adderall 20 mg Tablet] 20 mg PO TID 10/05/16 [ History] Mometasone Furoate [Nasonex [place]] 2 spray BRITTANEY DAILY 10/05/16 [History] Pravastatin [Pravachol] 10 mg PO BEDTIME 10/05/16 [History] Testosterone Cypionate [Depo-Testosterone] 1 dose IM ASDIRECTED 11/18/16 [ History] - CURRENT (IN HOUSE) MEDS Current Meds: Current Medications Lactated Ringer's (Ringers, Lactated) 1,000 mls @ 125 mls/hr IV ASDIRECTED [place] Stop: 11/20/16 23:00 Lidocaine/Sodium Bicarbonate (Buffered Lidocaine 1% In Ns 8.4%) 0.25 ml .XX ONETIME PRN PRN Reason: Prior to IV Start Stop: 11/20/16 18:00 Sodium Chloride (Saline Flush) 10 ml FLUSH ASDIRECTED PRN PRN Reason: Keep Vein Open Stop: 11/20/16 18:00 Discontinued Medications Fentanyl (Sublimaze) Confirm Administered Dose 250 mcg .ROUTE .STK-MED ONE Stop: 11/20/16 08:12 Midazolam HCl (Versed 1 Mg/Ml) Confirm Administered Dose 2 mg .ROUTE .STK-MED ONE Stop: 11/20/16 08:12 Ondansetron HCl (Zofran) Confirm Administered Dose 4 mg .ROUTE .STK-MED ONE Stop: 11/20/16 08:12 Propofol (Diprivan 20 Ml) Confirm Administered Dose 200 mg .ROUTE .STK-MED ONE Stop: 11/20/16 08:12 Rocuronium [place] (Zemuron) Confirm Administered Dose 50 mg .ROUTE .STK-MED ONE Stop: 11/20/16 08:12
--- NOTE | 2016-11-20 10:41 | PCM.HP ---
H&P History of Present Illness - General Date of Service: 11/20/16 Source of Information: Patient History Limitations: Reports: No Limitations - History of Present Illness Initial Comments - Free Text/Narative: 61 yo M presents for lap incisional hernia repair. No changes in his health since last seen in September. Here w/ . - Related Data Allergies/Adverse Reactions: Allergies Allergy/AdvReac Type Severity Reaction Status Date / Time Penicillins Allergy Rash Verified 11/20/16 09:24 Home Medications: Home Meds Allopurinol [Zyloprim] 300 mg PO DAILY 11/15/15 [History] Lisinopril/Hydrochlorothiazide [Lisinopril-Hctz 20-12.5 mg Tab] 1 tab PO DAILY 11/15/15 [History] Hydrocodone/Acetaminophen [[place] 10-325] 1 each PO Q6H PRN #15 tablet 11/17/15 [ Rx] Atenolol 50 mg PO DAILY 10/05/16 [History] Dexlansoprazole [Dexilant] 60 mg PO DAILY 10/05/16 [History] Dextroamphetamine/Amphetamine [Adderall 20 mg Tablet] 20 mg PO TID 10/05/16 [ History] Mometasone Furoate [Nasonex [place]] 2 spray BRITTANEY DAILY 10/05/16 [History] Pravastatin [Pravachol] 10 mg PO BEDTIME 10/05/16 [History] Testosterone Cypionate [Depo-Testosterone] 1 dose IM ASDIRECTED 11/18/16 [ History] Past Medical History HEENT History: Reports: Allergic Rhinitis, Cataract Cardiovascular History: Reports: CAD, High Cholesterol, Hypertension Respiratory History: Reports: Sleep Apnea Gastrointestinal History: Reports: Bowel Obstruction, Colon Polyp, GERD, GI Bleed, Hiatal Hernia, Other (See Below) Other Gastrointestinal History: Gastritis/Esophagitis, tubular adenoma, fatty liver Genitourinary History: Reports: BPH, Other (See Below) Other Genitourinary History: low testosterone [employer] History: Reports: None Musculoskeletal History: Reports: Back Pain, Chronic, Gout, Neck Pain, Chronic Other Musculoskeletal History: Recent rotator cuff tear Neurological History: Reports: None Psychiatric History: Reports: ADD, Anxiety Endocrine/Metabolic History: Reports: None, Other (See Below) Other Endocrine/Metabolic History: testost. injections q2 weeks Hematologic History: Reports: Polycythemia Immunologic History: Reports: None Oncologic (Cancer) History: Reports: None Dermatologic History: Reports: None - Infectious Disease History Infectious Disease History: Reports: Chicken Pox, Measles, Mumps - Past Surgical History HEENT Surgical History: Reports: Cataract Surgery, Laser Surgery Other HEENT Surgeries/Procedures: laser eye surgery Cardiovascular Surgical History: Reports: None GI Surgical History: Reports: Cholecystectomy, Colonoscopy, EGD, Hernia, Abdominal, Hernia Repair/Other, Polypectomy Endocrine Surgical History: Reports: None Musculoskeletal Surgical History: Reports: Shoulder Surgery, Other (See Below) Other Musculoskeletal Surgeries/Procedures:: tricept reattachment, neuroplasty and trasposition of ulnar nerve Social & Family History - Family History Cardiac: Reports: Blood Clots/VTE/DVT, Hypertension : Reports: None Endocrine/Metabolic: Reports: Diabetes, type II - Tobacco Use Smoking Status *Q: Former Smoker - Alcohol Use Days Per Week of Alcohol Use: 5 Number of Drinks Per Day: 1 Total Drinks Per Week: 5 - Recreational Drug Use Recreational Drug Use: No - Living Situation & Occupation Living situation: Reports: Occupation: Employed H&P Review of Systems - Review of Systems: Review Of Systems: ROS reveals no pertinent complaints other than HPI. Exam - Exam Exam: See Below - Vital Signs Vital Signs: Last Vital Signs Temp 98.4 F 11/20/16 09:00 Pulse 75 11/20/16 09:00 Resp 16 11/20/16 09:33 BP 111/85 11/20/16 09:00 Pulse Ox 97 11/20/16 09:33 Weight: 221 lb - Exam Quality Assessment: No: Supplemental Oxygen General: Alert, Oriented, Cooperative HEENT: Conjunctiva Clear. No: Scleral Icterus Lungs: Normal Respiratory Effort Cardiovascular: Regular Rate Abdomen: Soft, Hernia. No: Peritoneal Signs, Distention, Guarding Extremities: No: Clubbing, Cyanosis Skin: Warm, Dry, Intact Neurological: Cranial Nerves Intact, Normal Speech. No: Focal Deficit Neuro Extensive - Mental Status: Alert, Oriented x3, Normal Mood/Affect, Normal Cognition Psychiatric: Alert, Normal Affect, Normal Mood - Patient Data Lab Results Last 24 hrs: Laboratory Results - last 24 hr 11/20/16 11/20/16 Range/Units 09:08 09:08 WBC 5.39 (4.23-9.07) K/mm3 RBC 4.67 (4.63-6.08) M/mm3 Hgb 14.6 (13.7-17.5) gm/L Hct 42.7 (40.1-51.0) % MCV 91.4 (79.0-92.2) fl MCH 31.3 (25.7-32.2) pg MCHC 34.2 (32.2-35.5) g/dl RDW Std Deviation 45.4 H (35.1-43.9) fL Plt Count 267 (163-337) K/mm3 MPV 8.6 L (9.4-12.3) fl Neut % (Auto) 61.0 (34.0-67.9) % Lymph % (Auto) 24.1 (21.8-53.1) % [place] % (Auto) 10.8 (5.3-12.2) % Eos % (Auto) 2.8 (0.8-7.0) Baso % (Auto) 1.1 (0.1-1.2) % Neut # (Auto) 3.29 (1.78-5.38) K/mm3 Lymph # (Auto) 1.30 L (1.32-3.57) K/mm3 [place] # (Auto) 0.58 (0.30-0.82) K/mm3 Eos # (Auto) 0.15 (0.04-0.54) K/mm3 Baso # (Auto) 0.06 (0.01-0.08) K/mm3 Sodium 135 L (136-145) mEq/L Potassium 4.3 (3.5-5.1) mEq/L Chloride 101 (98-107) mEq/L Carbon Dioxide 27 (21-32) mEq/L Anion Gap 11.3 (5-15) BUN 16 (7-18) mg/dL Creatinine 1.2 (0.7-1.3) mg/dL Est Cr Clr Drug Dosing 68.44 mL/min Estimated GFR (MDRD) > 60 (>60) mL/min BUN/Creatinine Ratio 13.3 L (14-18) Glucose 105 (74-106) mg/dL Calcium 9.2 (8.5-10.1) mg/dL Phosphorus 2.9 (2.6-4.7) mg/dL Magnesium 2.0 (1.8-2.4) mg/dl Result Diagrams: 07/05/17 09:08 11/20/16 09:08 *Q Meaningful Use (ADM) - VTE *Q VTE Criteria *Q: - Stroke *Q Stroke Criteria *Q: - AMI *Q AMI Criteria *Q: - Problem List (1) Incisional hernia SNOMED Code(s): 579261027 ICD Code: K43.2 - INCISIONAL HERNIA WITHOUT OBSTRUCTION OR GANGRENE Status : Acute Current Visit: Yes Problem List Initiated/Reviewed/Updated: Yes Orders Last 24hrs: Active Orders 24 hr Category Date Time Status Peripheral IV Care [RC] . DIRECTED Care 11/20/16 00:01 Active Verify Patient Consent Obtain [RC] ASDIRECTED Care 11/20/16 00:01 Active Lactated Ringers [Ringers, Lactated] 1,000 ml Med 11/20/16 00:01 Active IV ASDIRECTED Lidocaine 1%/Sod Bicarbonate [Buffered Lidocaine 1% in Med 11/20/16 00:01 Active NS 8.4%] 0.25 ml .XX ONETIME PRN Sodium Chloride 0.9% [Saline Flush] Med 11/20/16 00:01 Active 10 ml FLUSH ASDIRECTED PRN Medication Administration Instruction [OM.PC] Routine Oth 11/20/16 00:01 Ordered Peripheral IV Insertion Adult [OM.PC] Routine Oth 11/20/16 00:01 Ordered Medication Orders Lactated Ringer's (Ringers, Lactated) 1,000 mls @ 125 mls/hr IV ASDIRECTED [place] Stop: 11/20/16 23:00 Last Admin: 11/20/16 09:10 Dose: 125 mls/hr Lidocaine/Sodium Bicarbonate (Buffered Lidocaine 1% In Ns 8.4%) 0.25 ml .XX ONETIME PRN PRN Reason: Prior to IV Start Stop: 11/20/16 18:00 Last Admin: 11/20/16 09:10 Dose: 0.25 ml Sodium Chloride (Saline Flush) 10 ml FLUSH ASDIRECTED PRN PRN Reason: Keep Vein Open Stop: 11/20/16 18:00 Assessment/Plan Comment:: 61 yo M with incisional hernias Proceed as planned with lap incisional hernia repair w/ mesh.
[2016-11-20] MEDS ORDERED: ceFAZolin 1 GM Vial ONE (11:02)
[2016-11-20] MEDS: Bupivacaine 0.5%/EPINEPHrine 1:200,000 50 ML MDV ONE ×2 (11:24→12:15)
[2016-11-20] MEDS: Lidocaine 1% with EPINEPHrine 1:100,000 20 ML MDV ONE ×2 (11:24→12:15)
[2016-11-20] MEDS ORDERED: ePHEDrine/Normal Saline 25 MG/5 ML Syringe ONE (11:37)
[2016-11-20] MEDS ORDERED: Rocuronium 50 MG/5 ML Vial ONE (11:39)
[2016-11-20] MEDS ORDERED: Lactated Ringers 1,000 ML ONE (11:40)
[2016-11-20] MEDS ORDERED: Neostigmine Methylsulfate 1 MG/ML 5 ML Syringe ONE (12:22)
[2016-11-20] MEDS ORDERED: fentaNYL 250 MCG/5 ML SDV ONE (12:25)
[2016-11-20] MEDS ORDERED: Sodium Chloride 0.9% 10 ML Syringe FLUSH PRN ×2 (12:36→14:39)
--- NOTE | 2016-11-20 12:39 | PCM.POSTAN ---
POST ANESTHESIA ASSESSMENT - MENTAL STATUS Mental Status: somnolent - VITAL SIGNS Pulse Rate: 78 SaO2: 94 Resp Rate: 20 Blood Pressure: 126/56 Temperature: 36.2 C - RESPIRATORY Respiratory Status: respiratory rate WNL, airway patent, O2 saturation stable, supplemental oxygen - CARDIOVASCULAR CV Status: pulse rate WNL, blood pressure stable - GASTROINTESTINAL GI Status: no symptoms - PAIN Pain Score: 0 - POST OP HYDRATION Hydration Status: adequate & stable - OBSERVATIONS Free Text/Narrative:: no anesthesia complications noted
[2016-11-20] MEDS: HYDROmorphone 0.5 MG/0.5 ML Syringe IVPUSH PRN ×6 (12:50→21:06)
--- NOTE | 2016-11-20 12:51 | PCM.OPNOTE ---
- General Post-Op/Procedure Note Date of Surgery/Procedure: 11/20/16 Operative Procedure(s): Laparoscopic repair of multiple ventral incisional incarcerated hernias with mesh, laparoscopic lysis of adhesions Pre Op Diagnosis: [place] cheese defect at previous midline incision Post-Op Diagnosis: Multiple incarcerated ventral incisional hernias, intra- abdominal adhesions Anesthesia Technique: General ET tube, Local (33mL) Primary Surgeon: Lisa Grullon Anesthesia Provider: Hai Conley Pathology: None Fluid Replacement, Intraop: 1,300 (mL crystalloid ) EBL in mLs: 5 Complications: None Condition: Good Free Text/Narrative:: URINE OUTPUT: 140 mL IMPLANTED DEVICES: Ventralight ST Lot#[id number] 6" x 8" (15.2 x 20.3 cm) INDICATION FOR PROCEDURE: The patient is a 61-year-old man who is a patient of Dr. Raheel Hernandez who presents for repair of turkmen cheese defect related to previous primary repair of an incarcerated ventral hernia that had been performed at another institution. I discussed with the patient laparoscopic incisional herniorrhaphy with mesh and associated risks of the procedure. The patient found these risks acceptable and agreed to proceed. DESCRIPTION OF PROCEDURE: The patient was taken to the operating room and placed in the supine position. Sequential compressive devices were placed on the bilateral lower extremities. Preoperative antibiotics were administered as per protocol. After induction of general endotracheal anesthesia a Clarke catheter was placed with drainage of clear yellow urine. The patient's arms were tucked at their sides bilaterally, pressure points were adequately padded. The abdomen was then prepped and draped in usual sterile fashion and an Ioban was applied. A stab incision was then made using a scalpel in the left upper quadrant after first injecting local anesthetic. A Veress needle was introduced into the abdomen. A water drop test was performed. The abdomen was then insufflated to 15 mm of mercury. A small left upper quadrant trocar incision was made. A 5 mm trocar was introduced into the abdomen using the Visiport technique. The abdomen was surveyed. The patient had dense omental adhesions to the midline abdomen. An additional 5 mm trocar was then placed in the left lower quadrant under direct visualization. A harmonic scalpel was then used to take down the adhesions as well as remove the incarcerated omentum from the multiple hernia defects. I counted at least 8 separate small hernia defects. The largest of the defects measured about 3 cm in width. The defects ran the entire length of his previous midline incision. The length of this incision with the abdomen insufflated measured 15 cm, utilizing a spinal needle to robinson the beginning and ending of the incision. The falciform ligament was also taken down to with the harmonic scalpel. A small incision was then made over the largest defect. The abdomen was easily entered using the defect. A 15.2 (W) cm x 20.3 (L) cm Ventralight ST mesh with positioning system was selected. This placed into the abdomen through this hernia defect. The hernia defect was then closed using a running 0 Vicryl suture. Using the laparoscopic suture passer, the insufflation tubing to the positioning system was grasped in the midpoint of the previous midline incision. The positioning system was insufflated. The mesh was then secured using the Ethicon SecureStrap absorbable tacker. The defects were more than amply covered. 2 additional 5 mm trocars were placed under direct visualization in the right lateral abdomen to facilitate securing the mesh. No transfascial sutures were placed. The trocars were removed with no evidence of bleeding. The abdomen was then desufflated. The trocar insertion sites and small midline incision were then closed using 4-0 Monocryl suture. Dermabond was placed over the skin incisions. The clarke catheter was removed without difficulty. The patient was awakened from anesthesia, extubated, and transferred to the recovery room in stable condition having tolerated the procedure well. An abdominal binder was applied prior to leaving the operating room. Sponge and instrument counts were reported as correct as the end of the case. POSTOPERATIVE PLAN: I discussed my intraoperative findings and post-operative recommendations with the patient's . Although the patient could have been discharged home today, postoperatively he had difficulty with pain control. For this reason he was kept overnight in observation. If his pain is adequately controlled tomorrow, he will be allowed to discharge home.
[2016-11-20] MEDS: fentaNYL 100 MCG/2 ML SDV IVPUSH PRN ×4 (12:58→13:18)
[2016-11-20] MEDS: Acetaminophen/oxyCODONE 325-5 MG Tab PO PRN ×3 (13:42→22:07)
[2016-11-20] MEDS ORDERED: Ondansetron 4 MG/2 ML SDV IVPUSH PRN (14:39)
[2016-11-20] MEDS ORDERED: Benzocaine/Cetylpyridinium/Menthol Lozenge MUCMEM PRN (14:39)
[2016-11-20] MEDS ORDERED: diphenhydrAMINE 50 MG/ML SDV IVPUSH PRN (14:39)
[2016-11-20] MEDS: Ketorolac 15 MG/ML SDV IVPUSH SCH ×2 (14:56→20:48)
[2016-11-20] MEDS: Dextroamphetamine/Amphetamine [Adderall 20 Mg Tablet] PO SCH ×2 (16:19→20:51)
[2016-11-20] MEDS ORDERED: Simvastatin 10 MG Tab PO SCH (21:00)
[2016-11-21] MEDS: Ketorolac 15 MG/ML SDV IVPUSH SCH ×2 (03:36→08:30)
[2016-11-21] MEDS: Acetaminophen/oxyCODONE 325-5 MG Tab PO PRN ×2 (04:27→08:27)
[2016-11-21] MEDS: Dextroamphetamine/Amphetamine [Adderall 20 Mg Tablet] PO SCH (08:55)
[2016-11-21 08:56] VITALS: BP 130/76
[2016-11-21] MEDS ORDERED: Allopurinol 300 MG Tab PO SCH (09:00)
[2016-11-21] MEDS ORDERED: Atenolol 50 MG Tab PO SCH (09:00)
[2016-11-21] MEDS ORDERED: Hydrochlorothiazide 12.5 MG Cap PO SCH (09:00)
[2016-11-21] MEDS ORDERED: Polyethylene Glycol 3350 Powder 17 GM Packet PO SCH (09:00)
[2016-11-21] MEDS ORDERED: Lisinopril 20 MG Tab PO SCH (09:00)
[2016-11-21] MEDS ORDERED: Dexlansoprazole [Dexilant] 60 MG PO SCH (09:00)
--- NOTE | 2016-11-21 11:21 | PCM.DCSUM1 ---
Discharge Summary - Hospital Course Free Text/Narrative:: Mr. Panchal is a 61-year-old man who is a patient of Dr. Raheel Hernandez who I performed a laparoscopic incisional ventral hernia repair for yesterday. Patient had some difficulty with postoperative pain control. He was admitted for postoperative pain control and did well overnight. This morning the patient has tolerated regular diet, his pain is well-controlled with oral pain medication, and he is anxious to go home. His incisions are clean, dry, intact with minimal bruising, no erythema or drainage. He feels most comfortable wearing his abdominal binder. Written postoperative instructions were provided in detail as well as verbally to the patient and his . He will follow-up with me in approximately 2 weeks. He is to call with any questions or concerns. His prescriptions for Percocet, Zofran ODT, and senna S were sent electronically to his pharmacy. - Discharge Data Discharge Date: 11/21/16 Discharge Disposition: Home, Self-Care 01 Condition: Good - Discharge Diagnosis/Problem(s) (1) Incisional hernia SNOMED Code(s): 226909847 ICD Code: K43.2 - INCISIONAL HERNIA WITHOUT OBSTRUCTION OR GANGRENE Status : Resolved - Patient Summary/Data Operative Procedure(s) Performed: Laparoscopic repair of multiple ventral incisional incarcerated hernias with mesh, laparoscopic lysis of adhesions Consults: Consultations 11/20/16 14:39 PT Evaluation and Treatment [CONS] Routine Respiratory Care Assess and Treatment [CONS] Routine - Patient Instructions Diet: Usual Diet as Tolerated Activity: No Lifting Over 10 Pounds (x 6 weeks ) Driving: Do Not Drive (while on narcotic pain medications ) Showering/Bathing: May Shower, No Tub Bathing/Swimming Notify Provider of: Fever, Increased Pain, Swelling and Redness, Drainage, Nausea and/or Vomiting - Discharge Plan Home Medications: Home Meds Allopurinol [Zyloprim] 300 mg PO DAILY 11/15/15 [History] Lisinopril/Hydrochlorothiazide [Lisinopril-Hctz 20-12.5 mg Tab] 1 tab PO BEDTIME 11/15/15 [History] Atenolol 50 mg PO BEDTIME 10/05/16 [History] Dexlansoprazole [Dexilant] 60 mg PO DAILY 10/05/16 [History] Dextroamphetamine/Amphetamine [Adderall 20 mg Tablet] 20 mg PO TID 10/05/16 [ History] Mometasone Furoate [Nasonex [place]] 2 spray BRITTANEY DAILY 10/05/16 [History] Pravastatin [Pravachol] 10 mg PO BEDTIME 10/05/16 [History] Testosterone Cypionate [Depo-Testosterone] 1 dose IM ASDIRECTED 11/18/16 [ History] Aspirin [Halfprin] 81 mg PO DAILY 11/20/16 [History] Hydrocodone/Acetaminophen [[place] 10-325 Tablet] 1 tab PO Q4HR PRN 11/20/16 [ History] Tadalafil [Cialis] 5 mg PO DAILY PRN 11/20/16 [History] Patient Handouts: Hernia, Adult, [id number] Referrals: Lisa Grullon MD [Physician] - 12/04/16 8:30 am (You will have a follow up appointment on Friday, December 04 at 8:[address] Grullon.) - Discharge Summary/Plan Comment DC Time >30 min.: No - General Info Date of Service: 11/21/16 Functional Status: Reports: pain controlled, tolerating diet, ambulating, urinating. Denies: new symptoms - Patient Data Vitals - Most Recent: Last Vital Signs Temp 98.3 F 11/21/16 07:52 Pulse 69 11/21/16 08:55 Resp 16 11/21/16 07:52 BP 130/76 11/21/16 08:55 Pulse Ox 97 11/21/16 07:52 Weight - Most Recent: 227 lb I&O - Last 24 hours: Intake & Output 11/20/16 11/21/16 11/21/16 22:59 06:59 14:59 Intake Total 1940 750 Output Total 250 Balance 1940 500 Lab Results - Last 24 hrs: Laboratory Results - last 24 hr 11/21/16 11/21/16 Range/Units 06:28 06:28 WBC 6.97 (4.23-9.07) K/mm3 RBC 4.20 L (4.63-6.08) M/mm3 Hgb 12.9 L (13.7-17.5) gm/L Hct 39.4 L (40.1-51.0) % MCV 93.8 H (79.0-92.2) fl MCH 30.7 (25.7-32.2) pg MCHC 32.7 (32.2-35.5) g/dl RDW Std Deviation 45.7 H (35.1-43.9) fL Plt Count 218 (163-337) K/mm3 MPV 8.8 L (9.4-12.3) fl Neut % (Auto) 74.5 H (34.0-67.9) % Lymph % (Auto) 13.6 L (21.8-53.1) % [place] % (Auto) 8.2 (5.3-12.2) % Eos % (Auto) 3.2 (0.8-7.0) Baso % (Auto) 0.4 (0.1-1.2) % Neut # (Auto) 5.19 (1.78-5.38) K/mm3 Lymph # (Auto) 0.95 L (1.32-3.57) K/mm3 [place] # (Auto) 0.57 (0.30-0.82) K/mm3 Eos # (Auto) 0.22 (0.04-0.54) K/mm3 Baso # (Auto) 0.03 (0.01-0.08) K/mm3 Sodium 135 L (136-145) mEq/L Potassium 4.2 (3.5-5.1) mEq/L Chloride 101 (98-107) mEq/L Carbon Dioxide 26 (21-32) mEq/L Anion Gap 12.2 (5-15) BUN 22 H (7-18) mg/dL Creatinine 1.4 H (0.7-1.3) mg/dL Est Cr Clr Drug Dosing 58.66 mL/min Estimated GFR (MDRD) 52 (>60) mL/min BUN/Creatinine Ratio 15.7 (14-18) Glucose 118 H (74-106) mg/dL Calcium 8.5 (8.5-10.1) mg/dL Med Orders - Current: Current Medications Allopurinol (Zyloprim) 300 mg PO DAILY [facility] Last Admin: 11/21/16 08:51 Dose: 300 mg Atenolol (Tenormin) 50 mg PO DAILY [facility] Last Admin: 11/21/16 08:55 Dose: 50 mg Benzocaine/Menthol (Cepacol Sore Throat) 1 lozenge MUCMEM Q1H PRN PRN Reason: Sore Throat Last Admin: 11/21/16 05:03 Dose: 1 lozenge Diphenhydramine HCl (Benadryl) 25 mg IVPUSH Q4H PRN PRN Reason: Itching Flunisolide (Nasalide Nasal [place]) 0 ml BRITTANEY BID [facility] Last Admin: 11/21/16 08:51 Dose: 2 spray Hydrochlorothiazide (Hydrochlorothiazide) 12.5 mg PO DAILY [facility] Last Admin: 11/21/16 08:51 Dose: 12.5 mg Hydromorphone HCl (Dilaudid) 0.5 mg IVPUSH ASDIRECTED PRN PRN Reason: Pain Stop: 11/21/16 13:41 Last Admin: 11/20/16 13:45 Dose: 0.5 mg Hydromorphone HCl (Dilaudid) 0.5 mg IVPUSH Q1H PRN PRN Reason: Pain (severe 7-10) Last Admin: 11/20/16 21:06 Dose: 0.5 mg Lisinopril (Prinivil) 20 mg PO DAILY [facility] Last Admin: 11/21/16 08:52 Dose: 20 mg Ondansetron HCl (Zofran) 4 mg IVPUSH Q6H PRN PRN Reason: Nausea/Vomiting Oxycodone/Acetaminophen (Percocet 325-5 Mg) 2 tab PO Q4H PRN PRN Reason: Pain (moderate 4-6) Last Admin: 11/21/16 08:27 Dose: 2 tab Dexlansoprazole [ (Dexilant] 60 Mg) 0 each PO DAILY [facility] Last Admin: 11/21/16 08:56 Dose: Not Given Dextroamphetamine/Amphetamine [ Adderall 20 Mg Tablet] 0 each PO TID [facility] Last Admin: 11/21/16 08:55 Dose: Not Given Polyethylene Glycol (Miralax) 17 gm PO DAILY [facility] Last Admin: 11/21/16 08:50 Dose: 17 gm Senna/Docusate Sodium (Senna Plus) 2 tab PO BID [facility] Last Admin: 11/21/16 08:51 Dose: 2 tab Simvastatin (Zocor) 5 mg PO BEDTIME [facility] Last Admin: 11/20/16 20:50 Dose: 5 mg Sodium Chloride (Saline Flush) 10 ml FLUSH ASDIRECTED PRN PRN Reason: Keep Vein Open Discontinued Medications Bupivacaine HCl/Epinephrine Bitart (Marcaine 0.5%/Epinephrine 1:200,000) Confirm Administered Dose 50 ml .ROUTE .STK-MED ONE Stop: 11/20/16 09:13 Last Admin: 11/20/16 12:15 Dose: 11 ml Cefazolin Sodium (Ancef) Confirm Administered Dose 2 gm .ROUTE .STK-MED ONE Stop: 11/20/16 11:03 Ephedrine Sulfate (Ephedrine In Ns) Confirm Administered Dose 25 mg .ROUTE .STK- MED ONE Stop: 11/20/16 11:38 Fentanyl (Sublimaze) Confirm Administered Dose 250 mcg .ROUTE .STK-MED ONE Stop: 11/20/16 08:12 Fentanyl (Sublimaze) Confirm Administered Dose 250 mcg .ROUTE .STK-MED ONE Stop: 11/20/16 12:26 Fentanyl (Sublimaze) 50 mcg IVPUSH Q5M PRN PRN Reason: PAIN Stop: 11/20/16 18:00 Last Admin: 11/20/16 13:18 Dose: 50 mcg Glycopyrrolate () Confirm Administered Dose 1 mg .ROUTE .STK-MED ONE Stop: 11/20/16 12:23 Hydromorphone HCl (Dilaudid) 0.5 mg IVPUSH Q15M PRN PRN Reason: Pain Stop: 11/20/16 13:16 Last Admin: 11/20/16 13:05 Dose: 0.5 mg Lactated Ringer's (Ringers, Lactated) 1,000 mls @ 125 mls/hr IV ASDIRECTED [facility] Stop: 11/20/16 23:00 Last Admin: 11/20/16 09:10 Dose: 125 mls/hr Lactated Ringer's (Ringers, Lactated) Confirm Administered Dose 1,000 mls @ as directed .ROUTE .STK-MED ONE Stop: 11/20/16 11:41 Ketorolac Tromethamine (Toradol) 15 mg IVPUSH Q6H [facility] Stop: 11/21/16 09:01 Last Admin: 11/21/16 08:30 Dose: 15 mg Lidocaine/Epinephrine (Xylocaine 1% With Epinephrine 1:100,000) Confirm Administered Dose 20 ml .ROUTE .STK-MED ONE Stop: 11/20/16 09:13 Last Admin: 11/20/16 12:15 Dose: 11 ml Lidocaine/Sodium Bicarbonate (Buffered Lidocaine 1% In Ns 8.4%) 0.25 ml .XX ONETIME PRN PRN Reason: Prior to IV Start Stop: 11/20/16 18:00 Last Admin: 11/20/16 09:10 Dose: 0.25 ml Midazolam HCl (Versed 1 Mg/Ml) Confirm Administered Dose 2 mg .ROUTE .STK-MED ONE Stop: 11/20/16 08:12 Neostigmine Methylsulfate (Neostigmine) Confirm Administered Dose 5 mg .ROUTE .STK-MED ONE Stop: 11/20/16 12:23 Ondansetron HCl (Zofran) Confirm Administered Dose 4 mg .ROUTE .STK-MED ONE Stop: 11/20/16 08:12 Oxycodone/Acetaminophen (Percocet 325-5 Mg) 1 - 2 tab PO Q4H PRN PRN Reason: Pain Stop: 11/20/16 18:00 Last Admin: 11/20/16 14:15 Dose: 1 tab Propofol (Diprivan 20 Ml) Confirm Administered Dose 200 mg .ROUTE .STK-MED ONE Stop: 11/20/16 08:12 Rocuronium [place] (Zemuron) Confirm Administered Dose 50 mg .ROUTE .STK-MED ONE Stop: 11/20/16 08:12 Rocuronium [place] (Zemuron) Confirm Administered Dose 50 mg .ROUTE .STK-MED ONE Stop: 11/20/16 11:40 Sodium Chloride (Saline Flush) 10 ml FLUSH ASDIRECTED PRN PRN Reason: Keep Vein Open Stop: 11/20/16 18:00 Sodium Chloride (Saline Flush) 10 ml FLUSH ASDIRECTED PRN PRN Reason: Keep Vein Open Stop: 11/20/16 18:00 - Exam Quality Assessment: Denies: supplemental oxygen General: Reports: alert, oriented, cooperative, no acute distress Lungs: Reports: Clear to auscultation, Normal respiratory effort Cardiovascular: Reports: Regular Rate, Regular Rhythm Abdomen: Reports: soft, no distension, tenderness (minimal and appropriate ). Denies: rigidity, rebound, guarding Skin: Reports: warm, dry, intact Wound/Incisions: Reports: healing well, other (Dermabond in place ) Neurological: Reports: no new focal deficit Psy/Mental Status: Reports: alert, normal affect, normal mood *Q Meaningful Use (DIS) - VTE *Q VTE Criteria *Q: - Stroke *Q Stroke Criteria *Q: - AMI *Q AMI Criteria *Q:
== END 2016-11-21 11:25 | disposition home or self-care (01) ==
LOC: JD.SDS 08:42 → JD.MS 15:35
PROVIDERS: ADMIT Surgery; ATTEND Surgery
PROC: 0WUF4JZ Supplement Abdominal Wall with Synthetic Substitute, Percutaneous Endoscopic Approach (ICD-10-PCS; principal; 2016-11-20)
DX: K43.0 Incisional hernia with obstruction, without gangrene (principal); K66.0 Peritoneal adhesions (postprocedural) (postinfection); I25.10 Atherosclerotic heart disease of native coronary artery without angina pectoris; I10 Essential (primary) hypertension; E78.00 Pure hypercholesterolemia, unspecified; G47.30 Sleep apnea, unspecified; K21.9 Gastro-esophageal reflux disease without esophagitis; N40.0 Benign prostatic hyperplasia without lower urinary tract symptoms; M10.9 Gout, unspecified; F41.9 Anxiety disorder, unspecified; Z86.010 Personal history of colon polyps; Z87.19 Personal history of other diseases of the digestive system; Z79.51 Long term (current) use of inhaled steroids; Z79.82 Long term (current) use of aspirin; Z79.899 Other long term (current) drug therapy; Z88.0 Allergy status to penicillin; Z90.49 Acquired absence of other specified parts of digestive tract; Z98.890 Other specified postprocedural states; Z87.891 Personal history of nicotine dependence
CPT/HCPCS: 36415; 49655; 80048; 83735; 84100; 85025; 94762; 96374; 96375; 96376; 97161; A9270; C1781; G0378; J0690; J1170; J1885; J2250; J2405; J2710; J3010; J7050; J7120; 00832; J2704